=== PATIENT | female | born 1940 | race African-American/Black ===

== ENCOUNTER → 2016-08-22 | Outpatient (REF) | payer MEDICARE ==
[~2016-08-22] MED LIST: AMLO10TA2 PO; ASPI81CH PO; ATEN100T PO; CETI10CH PO; CLOP75TA2 PO; COZA100T2 PO; GLUC500T PO; GLYB1TAB PO; LOSA50TA20 PO; METF1000 PO; OMEP40CA2 PO; TENO50TA PO; TYLE325T5 PO; ZOCO20TA PO
[2016-08-22 11:54] LABS: CALCIUM LEVEL 9.9 MG/DL (8.8-10.2); CREATININE FOR GFR 1.25 MG/DL (0.55-1.02); GLOMERULAR FILTRATION RATE 53.6 (>39); POTASSIUM SERUM 4.3 MEQ/L (3.5-5.1)
== END ==
LOC: M SFHCLERA 09:14
PROVIDERS: ATTEND Family Medicine
DX: E11.9 Type 2 diabetes mellitus without complications (principal)

== ENCOUNTER → 2017-02-09 | Outpatient (REF) | payer MEDICARE ==
[2017-02-09 11:44] LABS: ANION GAP 11 MEQ/L (8-16); BLOOD UREA NITROGEN 15 MG/DL (7-18); CALCIUM LEVEL 9.3 MG/DL (8.8-10.2); CARBON DIOXIDE LEVEL 29 MEQ/L (21-32); CHLORIDE LEVEL 101 MEQ/L (98-107); CREATININE FOR GFR 1.09 MG/DL (0.55-1.02); GLOMERULAR FILTRATION RATE > 60.0 (>39); GLUCOSE, FASTING 256 MG/DL (83-110); POTASSIUM SERUM 4.1 MEQ/L (3.5-5.1); SODIUM LEVEL 141 MEQ/L (136-145)
== END ==
LOC: M SFHCLERA 09:40
PROVIDERS: ATTEND Family Medicine
DX: E11.9 Type 2 diabetes mellitus without complications (principal)

== ENCOUNTER → 2017-04-25 | Outpatient (CLI) | payer MEDICARE, OTHER | LOC: M LRY 09:26 | DX: M47.812 Spondylosis without myelopathy or radiculopathy, cervical region (principal); M50.81 Other cervical disc disorders, high cervical region; M50.821 Other cervical disc disorders at C4-C5 level; M50.822 Other cervical disc disorders at C5-C6 level; M19.012 Primary osteoarthritis, left shoulder; M85.812 Other specified disorders of bone density and structure, left shoulder | CPT/HCPCS: 72052 ==

== ENCOUNTER → 2017-07-26 | Outpatient (REF) | payer OTHER ==
[2017-07-26 11:26] LABS: HEMATOCRIT 40.4 % (36.0-47.0); MEAN CORPUSCULAR HEMOGLOBIN 29.1 pg (27.0-33.0); MEAN CORPUSCULAR HGB CONC 32.2 g/dl (32.0-36.5); MEAN CORPUSCULAR VOLUME 90.4 fl (80.0-96.0); PLATELET COUNT, AUTOMATED 388 10^3/uL (150-450); RED BLOOD COUNT 4.47 10^6/uL (4.00-5.40); RED CELL DISTRIBUTION WIDTH 12.7 % (11.5-14.5); WHITE BLOOD COUNT 9.3 10^3/uL (4.0-10.0)
[2017-07-26 11:45] LABS: ESTIMATED AVERAGE GLUCOSE 174 MG/DL (60-110); HEMOGLOBIN A1c 7.7 %
[2017-07-26 11:59] LABS: ALBUMIN 3.9 GM/DL (3.2-5.2); ALBUMIN/GLOBULIN RATIO 1.05 (1.00-1.93); ALKALINE PHOSPHATASE 79 U/L (45-117); ALT/SGPT 37 U/L (12-78); ANION GAP 8 MEQ/L (8-16); AST/SGOT 22 U/L (7-37); BILIRUBIN,TOTAL 0.7 MG/DL (0.2-1.0); BLOOD UREA NITROGEN 15 MG/DL (7-18); CALCIUM LEVEL 9.3 MG/DL (8.8-10.2); CARBON DIOXIDE LEVEL 31 MEQ/L (21-32); CHLORIDE LEVEL 101 MEQ/L (98-107); CHOLESTEROL LEVEL 151 MG/DL (<200); CHOLESTEROL RISK RATIO 3.212 (<5); GLOMERULAR FILTRATION RATE > 60.0 (>39); GLUCOSE, FASTING 250 MG/DL (70-100); HDL CHOLESTEROL 47 MG/DL (>40); NON-HDL-C 104 MG/DL; POTASSIUM SERUM 4.2 MEQ/L (3.5-5.1); SODIUM LEVEL 140 MEQ/L (136-145); TOTAL PROTEIN 7.6 GM/DL (6.4-8.2); TRIGLYCERIDES LEVEL 170 MG/DL (<150)
== END ==
LOC: M SFHCLERA 09:28
DX: E11.65 Type 2 diabetes mellitus with hyperglycemia (principal); E78.2 Mixed hyperlipidemia; I10 Essential (primary) hypertension
CPT/HCPCS: 80053

== ENCOUNTER 2017-11-15 08:08 | Day surgery (SDC) | payer OTHER ==
[~2017-11-15 08:08] MED LIST changes: +ACETAMINOPHEN 325 MG TAB PO; -AMLO10TA2 PO; -ASPI81CH PO; -ATEN100T PO; -CETI10CH PO; -CLOP75TA2 PO; -COZA100T2 PO; -GLUC500T PO; -GLYB1TAB PO; -LOSA50TA20 PO; -METF1000 PO; -OMEP40CA2 PO; +PHENYLEPHRINE HCL 10 % OPHTH. SOL 5ML OS; -TENO50TA PO; -TYLE325T5 PO; -ZOCO20TA PO
[2017-11-15 08:43] LABS: BEDSIDE GLUCOSE 142 MG/DL (83-110)
[2017-11-15] MEDS: PHENYLEPHRINE 2.5% OPHTH SOL 2ML OS (08:48)
[2017-11-15] MEDS: LIDOCAINE 3.5 % 1ML OPHTH TOPICAL GEL OU (08:48)
[2017-11-15] MEDS: OFLOXACIN 0.3 % (OCUFLOX) OPTH SOL 5ML OS (08:48)
[2017-11-15] MEDS: TROPICAMIDE 1% OPHTH SOLN 2ML OS (08:49)
[2017-11-15] MEDS: CYCLOPENTOLATE 2% OPHTH SOLN 2ML BTL OS (08:49)
[2017-11-15] MEDS ORDERED: fentaNYL 100 MCG/2 ML INJECTION (J3010) As Ordered (10:26)
[2017-11-15] MEDS ORDERED: MIDAZOLAM INJ 2 MG/2 ML VIAL (J2250) As Ordered (10:26)
[2017-11-15] MEDS: POVIDONE-IODINE 5% OPHTH PREP SOL 30ML As Ordered (10:27)
[2017-11-15] MEDS: BSS with VANC/TOB/EPI for EYE CASES IR (10:29)
[2017-11-15] MEDS: LIDOCAINE 1% SDV 5 ML VIAL As Ordered (10:29)
[2017-11-15] MEDS: MOXIFLOXACIN IN BSS 0.25MG/0.25ML INTRACAMERAL INJ (OR EYE ONLY)(J2280) As Ordered (10:29)
[2017-11-15] MEDS: HEALON DUET (HEALON 10MG/ML 0.55ML & HEALON ENDOCOAT 30MG/ML 0.85ML) As Ordered ×2 (10:29→10:50)
[2017-11-15] MEDS: TRIAMCINOLONE PRES FR 40 MG/ML 1ML(TRIESENCE)(OR EYE ONLY)(J3300 PER 1MG) As Ordered (10:29)
[2017-11-15] MEDS: LIDOCAINE 2% W/EPIN INJ 20ML **PRES FREE XX (10:30)
[2017-11-15] MEDS: ACETYLCHOLINE OPHTH SOLN 1% 2ML (MIOCHOL-E) As Ordered (10:53)
[2017-11-15] MEDS ORDERED: TRIMETHOBENZAMIDE 300 MG CAP PO (11:15)
[2017-11-15] MEDS: AcetaZOLAMIDE 500 MG ER CAP PO (11:18)
== END 2017-11-15 11:37 | disposition home or self-care (01) ==
LOC: M SDC 08:08
DX: H25.12 Age-related nuclear cataract, left eye (principal); I10 Essential (primary) hypertension; R01.1 Cardiac murmur, unspecified; E11.9 Type 2 diabetes mellitus without complications; M17.0 Bilateral primary osteoarthritis of knee; M81.0 Age-related osteoporosis without current pathological fracture; F03.90 Unspecified dementia, unspecified severity, without behavioral disturbance, psychotic disturbance, mood disturbance, and anxiety; F32.9 Major depressive disorder, single episode, unspecified; R56.9 Unspecified convulsions; Z88.8 Allergy status to other drugs, medicaments and biological substances; Z79.899 Other long term (current) drug therapy; Z79.84 Long term (current) use of oral hypoglycemic drugs; Z86.73 Personal history of transient ischemic attack (TIA), and cerebral infarction without residual deficits; Z78.0 Asymptomatic menopausal state
CPT/HCPCS: 66984

== ENCOUNTER 2017-11-22 05:52 | Day surgery (SDC) | payer OTHER ==
[2017-11-22] MEDS ORDERED: ACETAMINOPHEN 325 MG TAB PO (06:00)
[2017-11-22] MEDS: CYCLOPENTOLATE 2% OPHTH SOLN 2ML BTL OD (06:33)
[2017-11-22] MEDS: PHENYLEPHRINE 2.5% OPHTH SOL 2ML OD (06:33)
[2017-11-22] MEDS: LIDOCAINE 3.5 % 1ML OPHTH TOPICAL GEL OU (06:34)
[2017-11-22] MEDS: OFLOXACIN 0.3 % (OCUFLOX) OPTH SOL 5ML OD (06:34)
[2017-11-22] MEDS: TROPICAMIDE 1% OPHTH SOLN 2ML OD (06:34)
[2017-11-22 06:41] LABS: BEDSIDE GLUCOSE 158 MG/DL (83-110)
[2017-11-22] MEDS ORDERED: PHENYLEPHRINE HCL 10 % OPHTH. SOL 5ML OD (07:00)
[2017-11-22] MEDS ORDERED: MIDAZOLAM INJ 2 MG/2 ML VIAL (J2250) As Ordered (07:01)
[2017-11-22] MEDS ORDERED: fentaNYL 100 MCG/2 ML INJECTION (J3010) As Ordered (07:01)
[2017-11-22] MEDS: POVIDONE-IODINE 5% OPHTH PREP SOL 30ML As Ordered (07:40)
[2017-11-22] MEDS: CEFUROXIME 1MG/0.1ML INTRACAMERAL INJ As Ordered (07:40)
[2017-11-22] MEDS: BSS with VANC/TOB/EPI for EYE CASES IR (07:40)
[2017-11-22] MEDS: LIDOCAINE 2% W/EPIN INJ 20ML **PRES FREE As Ordered (07:40)
[2017-11-22] MEDS: TRIAMCINOLONE PRES FR 40 MG/ML 1ML(TRIESENCE)(OR EYE ONLY)(J3300 PER 1MG) As Ordered (07:40)
[2017-11-22] MEDS: LIDOCAINE 1% SDV 5 ML VIAL As Ordered (07:40)
[2017-11-22] MEDS: HEALON DUET (HEALON 10MG/ML 0.55ML & HEALON ENDOCOAT 30MG/ML 0.85ML) As Ordered (07:40)
[2017-11-22] MEDS ORDERED: TRIMETHOBENZAMIDE 300 MG CAP PO (08:00)
[2017-11-22] MEDS: MOXIFLOXACIN IN BSS 0.25MG/0.25ML INTRACAMERAL INJ (OR EYE ONLY)(J2280) As Ordered (08:03)
[2017-11-22] MEDS: AcetaZOLAMIDE 500 MG ER CAP PO (08:25)
== END 2017-11-22 08:38 | disposition home or self-care (01) ==
LOC: M SDC 05:52
DX: H26.9 Unspecified cataract (principal); I10 Essential (primary) hypertension; R01.1 Cardiac murmur, unspecified; E11.9 Type 2 diabetes mellitus without complications; K21.9 Gastro-esophageal reflux disease without esophagitis; M12.9 Arthropathy, unspecified; M81.0 Age-related osteoporosis without current pathological fracture; F03.90 Unspecified dementia, unspecified severity, without behavioral disturbance, psychotic disturbance, mood disturbance, and anxiety; F32.9 Major depressive disorder, single episode, unspecified; I69.991 Dysphagia following unspecified cerebrovascular disease; R56.9 Unspecified convulsions; Z88.8 Allergy status to other drugs, medicaments and biological substances; Z79.899 Other long term (current) drug therapy; Z79.84 Long term (current) use of oral hypoglycemic drugs; Z78.0 Asymptomatic menopausal state
CPT/HCPCS: 66984

== ENCOUNTER 2018-05-27 11:31 | Emergency (ER) | payer MEDICARE, OTHER ==
[~2018-05-27 11:31] MED LIST changes: -ACETAMINOPHEN 325 MG TAB PO; +AMLO10TA2 PO; +AMLO5TAB6 PO; +ASPI81CH PO; +ATEN100T PO; +ATOR1TAB21 PO; +CETI10CH PO; +CLOP75TA2 PO; +CLOT1CRE71 TOP; +COZA100T2 PO; +FLUO20CA19 PO; +GLUC500T PO; +GLYB125TA PO; +GLYB1TAB PO; +JANU100T PO; +LOSA50TA20 PO; +LOSA50TA88 PO; +METF1000 PO; +METF10004 PO; +METO1TAB87 PO; +OMEP40CA2 PO; -PHENYLEPHRINE HCL 10 % OPHTH. SOL 5ML OS; +SIMV40TA2; +TENO50TA PO; +TYLE325T5 PO; +ZOCO20TA PO
[2018-05-27] MEDS ORDERED: ASPI81TA85 PO (11:49)
[2018-05-27 12:49] VITALS: BP 146/85
--- NOTE | 2018-05-27 13:33 | REP ---
CT BRAIN WITHOUT CONTRAST: CT brain performed without IV contrast. Comparison 01/05/2013. There is moderate atrophy. There is no midline shift or mass effect. 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 In addition there are scattered periventricular small vessel ischemic changes. There is no acute intracranial hemorrhage or extra-axial fluid collection. No skull fracture is seen. There are vascular calcifications in the carotid siphons. 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 No acute intracranial hemorrhage or skull fracture. Electronically Signed by Pavel Velez MD 05/27/2018 06:13 P
== END 2018-05-27 12:54 | disposition home or self-care (01) ==
LOC: M ED 11:31
DX: S09.90XA Unspecified injury of head, initial encounter (principal); X58.XXXA Exposure to other specified factors, initial encounter; Y92.091 Bathroom in other non-institutional residence as the place of occurrence of the external cause; Y93.E8 Activity, other personal hygiene; Y99.9 Unspecified external cause status; E11.9 Type 2 diabetes mellitus without complications; I10 Essential (primary) hypertension; Z86.73 Personal history of transient ischemic attack (TIA), and cerebral infarction without residual deficits; F03.90 Unspecified dementia, unspecified severity, without behavioral disturbance, psychotic disturbance, mood disturbance, and anxiety; R47.01 Aphasia; Z79.82 Long term (current) use of aspirin; Z79.84 Long term (current) use of oral hypoglycemic drugs; Z79.899 Other long term (current) drug therapy; Z88.8 Allergy status to other drugs, medicaments and biological substances

== ENCOUNTER → 2018-07-24 | Outpatient (REF) | payer MEDICARE ==
[~2018-07-24] MED LIST changes: +ASPI81TA85 PO
[2018-07-24 12:01] LABS: BASO % 0.4 % (0.0-1.0); EOS # 0.2 10^3/uL (0.0-0.50); EOS % 1.7 % (0.0-3.0); HEMOGLOBIN 12.6 g/dl (12.0-15.5); LYMPH % 28.8 % (24.0-44.0); MEAN CORPUSCULAR HEMOGLOBIN 29.1 pg (27.0-33.0); MEAN CORPUSCULAR HGB CONC 31.5 g/dl (32.0-36.5); MEAN CORPUSCULAR VOLUME 92.4 fl (80.0-96.0); MONO # 0.8 10^3/uL (0.0-0.8); MONO % 7.9 % (0.0-5.0); NEUTROPHILS # 6.3 10^3/uL (1.8-7.7); NEUTROPHILS % 60.9 % (36.0-66.0); PLATELET COUNT, AUTOMATED 384 10^3/uL (150-450); RED BLOOD COUNT 4.33 10^6/uL (4.00-5.40); WHITE BLOOD COUNT 10.4 10^3/uL (4.0-10.0)
[2018-07-24 12:59] LABS: MALB URINE SIEMENS 82.5 MG/L; MAU/CREAT RATIO 44.3 MCG/MG (0.0-30.0)
[2018-07-24 15:57] LABS: HEMOGLOBIN A1c 6.8 %
[2018-07-24 17:02] LABS: ALT/SGPT 22 U/L (12-78); BILIRUBIN,TOTAL 0.8 MG/DL (0.2-1.0); BLOOD UREA NITROGEN 13 MG/DL (7-18); CALCIUM LEVEL 9.6 MG/DL (8.8-10.2); CARBON DIOXIDE LEVEL 29 MEQ/L (21-32); CHLORIDE LEVEL 104 MEQ/L (98-107); CHOLESTEROL LEVEL 123 MG/DL (<200); CHOLESTEROL RISK RATIO 2.795 (<5); CREATININE FOR GFR 0.89 MG/DL (0.55-1.30); GLOMERULAR FILTRATION RATE > 60.0 (>39); GLUCOSE, FASTING 106 MG/DL (70-100); HDL CHOLESTEROL 44 MG/DL (>40); LDL CHOLESTEROL 58 MG/DL (<100); NON-HDL-C 79 MG/DL; POTASSIUM SERUM 4.1 MEQ/L (3.5-5.1); SODIUM LEVEL 142 MEQ/L (136-145); TOTAL PROTEIN 7.3 GM/DL (6.4-8.2); TRIGLYCERIDES LEVEL 104 MG/DL (<150); VITAMIN B12 LEVEL 555 PG/ML
== END ==
LOC: M SFHCLERA 08:50
PROVIDERS: ATTEND Family Medicine
DX: E11.9 Type 2 diabetes mellitus without complications (principal); F03.90 Unspecified dementia, unspecified severity, without behavioral disturbance, psychotic disturbance, mood disturbance, and anxiety
CPT/HCPCS: 80053; 80061; 82043; 82607; 82746; 83036; 84443; 85025; 86780; G0463

== ENCOUNTER → 2018-12-26 | Outpatient (REF) | payer MEDICARE ==
[~2018-12-26] MED LIST changes: +OMEP40CA97 PO
[2018-12-26 16:30] LABS: ALBUMIN 3.8 GM/DL (3.2-5.2); ALT/SGPT 15 U/L (12-78); BILIRUBIN,TOTAL 0.7 MG/DL (0.2-1.0); BLOOD UREA NITROGEN 17 MG/DL (7-18); CALCIUM LEVEL 9.5 MG/DL (8.8-10.2); CARBON DIOXIDE LEVEL 30 MEQ/L (21-32); CHLORIDE LEVEL 104 MEQ/L (98-107); CK-MB VALUE MASS < 1.0 NG/ML (<3.6); CPK CREATINE PHOSPHOKINASE 80 U/L (26-192); CREATININE FOR GFR 1.22 MG/DL (0.55-1.30); GLOMERULAR FILTRATION RATE 54.8 (>39); GLUCOSE, FASTING 175 MG/DL (70-100); MB/CK RELATIVE INDEX 1.25 (< OR =4); SODIUM LEVEL 141 MEQ/L (136-145); TOTAL PROTEIN 7.4 GM/DL (6.4-8.2)
[2018-12-26 16:52] LABS: HEMOGLOBIN A1c 6.7 %
== END ==
LOC: M SFHCLERA 10:52
PROVIDERS: ATTEND Family Medicine
DX: E11.9 Type 2 diabetes mellitus without complications (principal); I10 Essential (primary) hypertension; M79.601 Pain in right arm
CPT/HCPCS: 80053; 82553; 83036; 90682; G0008; G0463

== ENCOUNTER → 2019-08-01 | Outpatient (CLI) | payer MEDICARE ==
[~2019-08-01] MED LIST changes: -FLUO20CA19 PO; +FLUO20CA22 PO; -SIMV40TA2; +SIMV40TA20
--- NOTE | 2019-08-01 19:10 | REPPI ---
Clinical: Acute lower back pain. Technique: AP, lateral, bilateral oblique and coned-down views of the lumbosacral spine. Findings: Alignment and lordosis maintained. Generalized age-related osteopenia is appreciated along with moderate to advanced multilevel degenerative changes. Findings include endplate sclerosis, disc space narrowing and facet arthropathy at the L5-S1 level along with more moderate changes throughout the remainder of the visualized thoracic and lumbar spine. No acute fracture / compression injury or subluxation. Impression: Age-related osteopenia and moderate/focal advanced degenerative spondylosis. Electronically Signed by Gabriel Arteaga MD 08/01/2019 07:01 P
== END ==
LOC: M PLAIMG 08:42
PROVIDERS: ATTEND Family Medicine
DX: M85.88 Other specified disorders of bone density and structure, other site (principal); M51.36 Other intervertebral disc degeneration, lumbar region; M51.37 Other intervertebral disc degeneration, lumbosacral region; M51.34 Other intervertebral disc degeneration, thoracic region; M54.5 Low back pain; E11.9 Type 2 diabetes mellitus without complications
CPT/HCPCS: 36415; 72110; 80053; 80061; 82043; 83036; G0463

== ENCOUNTER → 2020-01-02 | Outpatient (CLI) | payer MEDICARE ==
[~2020-01-02] MED LIST changes: +AMLO1TAB24 PO; -AMLO5TAB6 PO; -ASPI81TA85 PO; +ASPI81TA86 PO
[2020-01-02 10:33] LABS: HEMOGLOBIN A1c 6.5 %
== END ==
LOC: M WUC 08:01
PROVIDERS: ATTEND Family Medicine
DX: E11.9 Type 2 diabetes mellitus without complications (principal)

== ENCOUNTER 2020-04-29 08:28 | Inpatient (IN) | payer MEDICARE ==
[~2020-04-29] VITALS: Ht 157.5 cm; Wt 77.3 kg
[2020-04-29 09:29] LABS: BASO % 0.2 % (0.0-1.0); EOS % 0.2 % (0.0-3.0); HEMATOCRIT 35.9 % (36.0-47.0); HEMOGLOBIN 11.2 g/dl (12.0-15.5); LYMPH # 1.4 10^3/uL (1.5-5.0); LYMPH % 16.4 % (24.0-44.0); MEAN CORPUSCULAR HEMOGLOBIN 28.5 pg (27.0-33.0); MEAN CORPUSCULAR HGB CONC 31.2 g/dl (32.0-36.5); MEAN CORPUSCULAR VOLUME 91.3 fl (80.0-96.0); MONO # 0.4 10^3/uL (0.0-0.8); MONO % 4.5 % (2.0-8.0); NEUTROPHILS # 6.4 10^3/uL (1.5-8.5); NEUTROPHILS % 78.1 % (36.0-66.0); PLATELET COUNT, AUTOMATED 277 10^3/uL (150-450); RED BLOOD COUNT 3.93 10^6/uL (4.00-5.40); WHITE BLOOD COUNT 8.2 10^3/uL (4.0-10.0)
--- OUTSIDE RECORDS SUMMARY | 2020-04-29 09:33 | CCD ---
Author Author [facility] Organization [facility] Address Unknown Phone Unavailable Care Team Providers Care Blast Furnace Blower Name Role Phone Bri BUTCHER DPM Unavailable Unavailable Bri BUTCHER DPM Unavailable Unavailable Bri BUTCHER DPM Unavailable Unavailable Bri BUTCHER DPM Unavailable Unavailable Bri BUTCHER DPM Unavailable Unavailable Bri BUTCHER DPM Unavailable Unavailable Bri BUTCHER DPM Unavailable Unavailable Bri BUTCHER DPM Unavailable Unavailable Bri BUTCHER DPM Unavailable Unavailable Bri BUTCHER DPM Unavailable Unavailable Bri BUTCHER DPM Unavailable Unavailable Bri BUTCHER DPM Unavailable Unavailable Bri BUTCHER DPM Unavailable Unavailable Bri BUTCHER DPM Unavailable Unavailable Bri BUTCHER DPM Unavailable Unavailable Bri BUTCHER DPM Unavailable Unavailable Bri BUTCHER DPM Unavailable Unavailable Bri BUTCHER DPM Unavailable Unavailable Bri BUTCHER DPM Unavailable Unavailable Bri BUTCHER DPM Unavailable Unavailable Bri BUTCHER DPM Unavailable Unavailable Bri BUTCHER DPM Unavailable Unavailable Bri BUTCHER DPM Unavailable Unavailable Bri BUTCHER DPM Unavailable Unavailable Bri BUTCHER DPM Unavailable Unavailable Bri BUTCHER DPM Unavailable Unavailable MAJAK, R CUONG DPM Unavailable Unavailable MAJAK, R CUONG DPM Unavailable Unavailable MAJAK, R CUONG DPM Unavailable Unavailable MAJAK, R CUONG DPM Unavailable Unavailable [facility], [facility] Unavailable Unavailable Re-disclosure Warning The records that you are about to access may contain information from federally-assisted alcohol or drug abuse programs. If such information is present, then the following federally mandated warning applies: This information has been disclosed to you from records protected by federal confidentiality rules (42 CFR part 2). The federal rules prohibit you from making any further disclosure of this information unless further disclosure is expressly permitted by the written consent of the person to whom it pertains or as otherwise permitted by 42 CFR part 2. A general authorization for the release of medical or other information is NOT sufficient for this purpose. The Federal rules restrict any use of the information to criminally investigate or prosecute any alcohol or drug abuse patient.The records that you are about to access may contain highly sensitive health information, the redisclosure of which is protected by Article 27-F of the [facility] Public Health law. If you continue you may have access to information: Regarding HIV / AIDS; Provided by facilities licensed or operated by the [facility] Office of Mental Health; or Provided by the [facility] Office for People With Developmental Disabilities. If such information is present, then the following [facility] mandated warning applies: This information has been disclosed to you from confidential records which are protected by state law. State law prohibits you from making any further disclosure of this information without the specific written consent of the person to whom it pertains, or as otherwise permitted by law. Any unauthorized further disclosure in violation of state law may result in a fine or usp sentence or both. A general authorization for the release of medical or other information is NOT sufficient authorization for further disc losure. Allergies and Adverse Reactions Type Description Substance Reaction Status Data Source(s ) Drug allergy Actonel Risedronate fall Active eCW1 ([facility]) lisinopril Zestril Lisinopril cough Active eCW1 ([facility]) Drug allergy Actos pioglitazone swelling in the feet Active eCW1 ([facility]) Drug allergy Dilantin Phenytoin Anaphylaxis Active eCW1 ([facility]) Encounters Encounter Providers Location Date Indications Data Source(s ) [place] [address] [facility] [address] 01/14/2020 12:00:00 AM EST eCW1 ([facility]) [place] [address] [facility] [address] 01/14/2020 12:00:00 AM EST eCW1 ([facility]) [place] [address] [facility] [address] 11/26/2019 12:00:00 AM EDT eCW1 ([facility]) Outpatient Attender: CUONG BUTCHER [facility] Office 11/04 09:00:00 AM EDT MEDENT ([facility] Outpatient Attender: CUONG BUTCHER [facility] 08/04 08:30:00 AM EDT MEDENT ([facility] 08/13/2019 07:56:59 PM EDT [facility] [place] [address] [facility] [address] 08/13/2019 12:00:00 AM EDT eCW1 ([facility]) [place] [address] [facility] [address] 08/13/2019 12:00:00 AM EDT eCW1 [facility]: [facility] 08/03/2019 12:17:34 AM EDT [facility] [address] [facility] [address] 08/02/2019 12:00:00 AM EDT eCW1 ([facility]) [place] [address] [facility] [address] 08/01/2019 12:00:00 AM EDT eCW1 ([facility]) [facility] Dermatology [address] [place] [address] 05/03/2019 12:00:00 AM EST eCW1 ([facility]) Immunizations Vaccine Date Status Description Data Source(s) influenza, recombinant, quadrIvalent,injectable, prese rvative free 01/14/2020 08:01:00 AM EST completed eCW1 ([facility]) influenza, recombinant, quadrIvalent,injectable, prese rvative free 01/14/2020 08:01:00 AM EST completed eCW1 ([facility]) Medications Medication Brand Name Start Date Product Form Dose Route Admi nistrative Instructions Pharmacy Instructions Status Indications Reaction Description Data Source(s) Diclofenac Sodium 0.01 MG/MG Topical Gel [Voltaren] Voltaren 1 % Voltaren 1 % 01/14/2020 12:00:00 AM EST active Voltaren 1 % eCW1 ([facility]) Diclofenac Sodium 0.01 MG/MG Topical Gel [Voltaren] Voltaren 1 % Voltaren 1 % 01/14/2020 12:00:00 AM EST active Voltaren 1 % eCW1 ([facility]) Erythromycin 0.005 MG/MG Ophthalmic Ointment Erythromy rivera 5 MG/GM Erythromycin 5 MG/GM 08/13/2019 12:00:00 AM EDT active Erythromycin 5 MG/GM eCW1 ([facility]) Carboxymethylcellulose Sodium 1 % UNK 08/13/2019 12:00:00 AM EDT active Carboxymethylcellulose Sodium 1 % eCW1 ([facility]) Erythromycin 0.005 MG/MG Ophthalmic Ointment Erythromy rivera 5 MG/GM Erythromycin 5 MG/GM 08/13/2019 12:00:00 AM EDT active Erythromycin 5 MG/GM eCW1 ([facility]) Carboxymethylcellulose Sodium 1 % UNK 08/13/2019 12:00:00 AM EDT active Carboxymethylcellulose Sodium 1 % eCW1 ([facility]) Carboxymethylcellulose Sodium 1 % UNK 08/13/2019 12:00:00 AM EDT active Carboxymethylcellulose Sodium 1 % eCW1 ([facility]) Erythromycin 0.005 MG/MG Ophthalmic Ointment Erythromy rivera 5 MG/GM Erythromycin 5 MG/GM 08/13/2019 12:00:00 AM EDT active Erythromycin 5 MG/GM eCW1 ([facility]) Carboxymethylcellulose Sodium 1 % UNK 08/13/2019 12:00:00 AM EDT active Carboxymethylcellulose Sodium 1 % eCW1 ([facility]) Erythromycin 0.005 MG/MG Ophthalmic Ointment Erythromy rivera 5 MG/GM Erythromycin 5 MG/GM 08/13/2019 12:00:00 AM EDT active Erythromycin 5 MG/GM eCW1 ([facility]) Erythromycin 0.005 MG/MG Ophthalmic Ointment Erythromy rivera 5 MG/GM Erythromycin 5 MG/GM 08/13/2019 12:00:00 AM EDT active Erythromycin 5 MG/GM eCW1 ([facility]) Carboxymethylcellulose Sodium 1 % UNK 08/13/2019 12:00:00 AM EDT active Carboxymethylcellulose Sodium 1 % eCW1 ([facility]) Betamethasone 0.0005 MG/MG Topical Ointment Betamethas one Dipropionate 0.05 % Betamethasone Dipropionate 0.05 % 05/03/2019 12:00:00 AM EST 1.0 {application} active Betamethasone Dipropiona te 0.05 % eCW1 ([facility]) Betamethasone 0.0005 MG/MG Topical Ointment Betamethas one Dipropionate 0.05 % Betamethasone Dipropionate 0.05 % 05/03/2019 12:00:00 AM EST active 1 application eCW1 ([facility]) Insurance Providers Payer name Policy type / Coverage type Policy ID Covered democrat ID Covered democrat's relationship to hunter Policy Hunter Plan Information [employer] [id number] SP [id number] D [employer] S [id number] S [id number] Well[employer] P UNAVAILABLE S UNAVAILA BLE ANSI-Medicare Part B [id number] ANSI-Health Maintenance Organization (HM O) [id number] ANSI-Health Maintenance Organization (HM O) [id number] ANSI-Medicare Part B [id number] ANSI-Medicare Part B [id number] [facility]-Health Maintenance Organization ( O) [id number] [facility]-Health Maintenance Organization ( O) [id number] ANSI-Medicare Part B [id number] [facility]-Health Maintenance Organization ( O) [id number] ANSI-Medicare Part B [id number] [facility]-Health Maintenance Organization ( O) [id number] ANSI-Medicare Part B [id number] TODAYS OPTIONS [id number] ANSI-Medicare Part B [id number] ANSI-Medicare Part B [id number] ANSI-Medicare Part B [id number] ANSI-Medicare Part B [id number] ANSI-Medicare Part B [id number] ANSI-Medicare Part B [id number] TODAYS OPTIONS [id number] ANSI-Medicare Part B [id number] ANSI-Medicare Part B [id number] ANSI-Medicare Part B [id number] MEDICARE BLUE PPO [id number] SP [id number] MEDICARE [id number] SP [id number] A MEDICAID [id number] SP [id number] MEDICAID S [id number] S [id number] MEDICARE P [id number] S [id number] A Problems, Conditions, and Diagnoses Code Display Name Description Problem Type Effective Dates Data Source(s) G89.29 Chronic pain Other chronic pain Problem 01/14/2020 12:0 0:00 AM EST eCW1 ([facility]) [id number] Type 2 diabetes mellitus Type 2 diabetes mellitus Prob mile 08/28/2019 12:00:00 AM EDT MEDENT [facility] Corns and callosities Corns and callosities Problem 08/28/2019 12:00:00 AM EDT MEDENT ([facility] [id number] Onychomycosis Onychomycosis Problem 08/28/2019 12:00:00 AM EDT [facility] ([facility] [id number] Pronation Pronation Problem 08/28/2019 12:00:00 AM ED T [facility] K21.9 [id number] Gastroesophageal reflux disease without e sophagitis Problem 07/31/2019 12:00:00 AM EDT eCW1 ([facility]) K21.9 [id number] Gastroesophageal reflux disease without e sophagitis Problem 07/31/2019 12:00:00 AM EDT eCW1 ([facility]) Surgeries/Procedures Procedure Description Date Indications Data Source(s) Immunization: Flublok Quadrivalent (18 years & older) 0.5mL IM (Influenza) 01/14/2020 12:00:00 AM EST eCW1 ([facility]) Social History Code Duration Value Status Description Data Source(s ) Smoking 01/14/2020 12:00:00 AM EST Never Smoker completed Never S moker eCW1 ([facility]) Smoking 01/14/2020 12:00:00 AM EST Never Smoker completed Never S moker eCW1 ([facility]) Smoking 08/13/2019 12:00:00 AM EDT Never Smoker completed Never S moker eCW1 ([facility]) Smoking 08/13/2019 12:00:00 AM EDT Never Smoker completed Never S moker eCW1 ([facility]) Smoking 08/13/2019 12:00:00 AM EDT Never Smoker completed Never S moker eCW1 ([facility]) Vital Signs ID Date Data Source UNK Name Value Range Interpretation Code Description Data Source(s) Diastolic blood pressure 82 mm[Hg] 82 mm[Hg] eCW1 ([facility]) Systolic blood pressure 144 mm[Hg] 144 mm[Hg] e CW1 ([facility]) Body temperature 98.7 [degF] 98.7 [degF] eCW1 ( [facility]) Respiratory rate 18 /min 18 /min eCW1 ([facility]) Heart rate 77 /min 77 /min eCW1 ([facility]) Body mass index (BMI) [Ratio] 30.52 kg/m2 30.52 kg/m2 eCW1 ([facility]) Body height 61.5 [in_i] 61.5 [in_i] eCW1 ([facility]) Body weight 164.2 [lb_av] 164.2 [lb_av] eCW1 ([facility]) Body mass index (BMI) [Ratio] 30.9 kg/m2 30.9 k g/m2 MEDENT ([facility] Heart rate 84 /min 84 /min MEDENT ([facility] Diastolic blood pressure 83 mm[Hg] 83 mm[Hg] MEDENT ([facility] Systolic blood pressure 151 mm[Hg] 151 mm[Hg] M EDENT ([facility] Body weight 166.00 [lb_av] 166.00 [lb_av] MEDEN T ([facility] Body height 61.5 [in_i] 61.5 [in_i] MARCELLE ([facility] 5'1.50" Body mass index (BMI) [Ratio] 31.04 kg/m2 31.04 kg/m2 eCW1 ([facility]) Body height 61.5 [in_i] 61.5 [in_i] eCW1 ([facility]) Body weight 167 [lb_av] 167 [lb_av] eCW1 ([facility]) Diastolic blood pressure 83 mm[Hg] 83 mm[Hg] eCW1 ([facility]) Systolic blood pressure 151 mm[Hg] 151 mm[Hg] e CW1 ([facility]) Body temperature 97.3 [degF] 97.3 [degF] eCW1 ( [facility]) Respiratory rate 17 /min 17 /min eCW1 ([facility]) Heart rate 84 /min 84 /min eCW1 ([facility]) Body mass index (BMI) [Ratio] 30.97 kg/m2 30.97 kg/m2 W1 ([facility]) Body height 61.5 [in_i] 61.5 [in_i] eCW1 ([facility]) Body weight 166.6 [lb_av] 166.6 [lb_av] eCW1 ([facility]) Body mass index (BMI) [Ratio] 30.63 kg/m2 30.63 kg/m2 eCW1 ([facility]) Body height 61.5 [in_us] 61.5 [in_us] eCW1 ([facility]) Body weight Measured 164.8 [lb_av] 164.8 [lb_av ] eCW1 ([facility]) Patient Treatment Plan of Care Planned Activity Planned Date Details Description Data Source (s) Diclofenac Sodium 0.01 MG/MG Topical Gel [Voltaren] 01/14/20 20 12:00:00 AM EST eCW1 ([facility]) Diclofenac Sodium 0.01 MG/MG Topical Gel [Voltaren] 01/14/20 12:00:00 AM EST eCW1 ([facility]) Carboxymethylcellulose Sodium 1 % 08/13/2019 12:00:00 AM EDT eCW1 ([facility]) Erythromycin 0.005 MG/MG Ophthalmic Ointment 08/13/2019 12:00:00 AM EDT eCW1 ([facility]) Carboxymethylcellulose Sodium 1 % 08/13/2019 12:00:00 AM EDT eCW1 ([facility]) Erythromycin 0.005 MG/MG Ophthalmic Ointment 08/13/2019 12:00:00 AM EDT eCW1 ([facility]) Carboxymethylcellulose Sodium 1 % 08/13/2019 12:00:00 AM EDT eCW1 ([facility]) Erythromycin 0.005 MG/MG Ophthalmic Ointment 08/13/2019 12:00:00 AM EDT eCW1 ([facility]) Betamethasone 0.0005 MG/MG Topical Ointment 05/03/2019 12:00:00 AM EST eCW1 ([facility])
[2020-04-29] MEDS ORDERED: LOSA100T50 PO (09:50)
[2020-04-29] MEDS ORDERED: METF-839 PO (09:50)
[2020-04-29 10:00] LABS: D-DIMER QUANT 2805.06 ng/ml (<500)
[2020-04-29 10:04] LABS: ALBUMIN 3.1 GM/DL (3.2-5.2); BILIRUBIN,DIRECT 0.1 MG/DL (0.0-0.2); BILIRUBIN,TOTAL 0.3 MG/DL (0.2-1.0); C REACTIVE PROTEIN QUANTITATIV 6.04 MG/DL (0.00-0.30); CALCIUM LEVEL 8.6 MG/DL (8.8-10.2); CREATININE FOR GFR 1.84 MG/DL (0.55-1.30); TOTAL PROTEIN 6.7 GM/DL (6.4-8.2); TROPONIN I 0.08 NG/ML (< 0.10)
--- NOTE | 2020-04-29 10:17 | REP ---
INDICATION: AMS. COMPARISON: 01/02/2013 TECHNIQUE: AP portable semi-erect FINDINGS: There is cardiomegaly with left atrial and ventricular enlargement even allowing for lordotic AP portable technique. Some patchy atelectasis or infiltrate in the right base suspected. Left base suggests some possible small retrocardiac lower lobe atelectasis or infiltrate. No gross effusion but the lordotic image technique will limited evaluation of posterior lower lung zones. The aorta is tortuous. Airway is intact. See no definite pulmonary edema. Some degenerative changes spine and shoulders seen. No free air under the diaphragm. IMPRESSION: 1. Some patchy right mid and lower lung zone atelectasis or infiltrates with some retrocardiac left lower lobe density that may reflect some small area of atelectasis or infiltrate as well. No effusion on the left. The lordotic projection limits evaluation of the posterior lower lung zones. 2. Cardiomegaly with left atrial and ventricular enlargement. No scottie edema. Tortuous calcified aorta. 3. Degenerative changes throughout the spine and shoulders. <Electronically signed by Rogerio Nettles > 04/29/20 [id number]
[2020-04-29] MEDS ORDERED: ACETAMINOPHEN TAB 650MG DOSE (2X325MG) PO PRN ×2 (11:20→14:55)
[2020-04-29] MEDS ORDERED: MOM 30ML SUSPENSION UDC PO PRN (11:20)
[2020-04-29] MEDS ORDERED: MAALOX 30 ML SUSP *UDC PO PRN (11:20)
[2020-04-29] MEDS ORDERED: NS 1,000 ML IV SCH (12:35)
[2020-04-29] MEDS: HEPARIN SOD (PORCINE) 5000UNITS/ML 1ML VIAL/SYRINGE SQ SCH ×2 (13:00→20:21)
--- OUTSIDE RECORDS SUMMARY | 2020-04-29 13:10 | CCD ---
Author Author [facility] Organization [facility] Address Unknown Phone Unavailable Care Team Providers Care Automation Specialist Name Role Phone Bri BUTCHER DPM Unavailable [...] is protected by Article 27-F of the [facility] Public Health law. If you continue you may have access to information: Regarding HIV / AIDS; Provided by facilities licensed or operated by the [facility] Office of Mental Health; or Provided by the [facility] Office for People With Developmental Disabilities. If such information is present, then the following [facility] mandated warning applies: This information has been [...] law may result in a fine or penitentiary sentence or both. A general authorization for the release of medical or other information is NOT sufficient authorization for further disc losure. Allergies and Adverse Reactions Type Description Substance Reaction Status Data Source(s ) Drug allergy Actonel Risedronate fall Active eCW1 ([facility]) lisinopril Zestril Lisinopril cough Active eCW1 ([facility]) Drug allergy Actos pioglitazone swelling in the feet Active eCW1 ([facility]) Drug allergy Dilantin Phenytoin Anaphylaxis Active eCW1 ([facility]) Encounters Encounter Providers Location Date Indications Data Source(s ) [place] [address] [facility] [address] 01/14/2020 12:00:00 AM EST eCW1 ([facility]) [place] [address] [facility] [address] 01/14/2020 12:00:00 AM EST eCW1 ([facility]) [place] [address] [facility] [address] 11/26/2019 12:00:00 AM EDT eCW1 ([facility]) Outpatient Attender: CUONG BUTCHER [facility] Office 11/04 09:00:00 AM EDT MEDENT ([facility] Outpatient Attender: CUONG BUTCHER [facility] Office 08/04 08:30:00 AM EDT MEDENT ([facility]: [facility] 08/13/2019 07:56:[address] [facility] [place] [address] [facility] [address] 08/13/2019 12:00:00 AM EDT eCW1 ([facility]) [place] [address] [facility] [address] 08/13/2019 12:00:00 AM EDT eCW1 [facility] Out[facility] Att[facility]: [facility] 08/03/2019 12:17:34 AM EDT [facility] [address] [facility] [address] 08/02/2019 12:00:00 AM EDT eCW1 ([facility]) [place] [address] [facility] [address] 08/01/2019 12:00:00 AM EDT eCW1 ([facility]) [facility] Dermatology [address] [place] [address] 05/03/2019 12:00:00 AM EST eCW1 ([facility]) Immunizations Vaccine Date Status Description Data Source(s) influenza, recombinant, quadrIvalent,injectable, prese rvative free 01/14/2020 08:01:00 AM EST completed eCW1 ([facility]) influenza, recombinant, quadrIvalent,injectable, prese rvative free 01/14/2020 08:01:00 AM EST completed eCW1 ([facility]) Medications Medication Brand Name Start Date Product Form Dose Route Admi nistrative Instructions Pharmacy Instructions Status Indications Reaction Description Data Source(s) Diclofenac Sodium 0.01 MG/MG Topical Gel [Voltaren] Voltaren 1 % Voltaren 1 % 01/14/2020 12:00:00 AM EST active Voltaren 1 % eCW1 ([facility]) Diclofenac Sodium 0.01 MG/MG Topical Gel [Voltaren] Voltaren 1 % Voltaren 1 % 01/14/2020 12:00:00 AM EST active Voltaren 1 % eCW1 ([facility]) Erythromycin 0.005 MG/MG Ophthalmic Ointment Erythromy rivera 5 MG/GM Erythromycin 5 MG/GM 08/13/2019 12:00:00 AM EDT active Erythromycin 5 MG/GM eCW1 ([facility]) Carboxymethylcellulose Sodium 1 % UNK 08/13/2019 12:00:00 AM EDT active Carboxymethylcellulose Sodium 1 % eCW1 ([facility]) Erythromycin 0.005 MG/MG Ophthalmic Ointment Erythromy rivera 5 MG/GM Erythromycin 5 MG/GM 08/13/2019 12:00:00 AM EDT active Erythromycin 5 MG/GM eCW1 ([facility]) Carboxymethylcellulose Sodium 1 % UNK 08/13/2019 12:00:00 AM EDT active Carboxymethylcellulose Sodium 1 % eCW1 ([facility]) Carboxymethylcellulose Sodium 1 % UNK 08/13/2019 12:00:00 AM EDT active Carboxymethylcellulose Sodium 1 % eCW1 ([facility]) Erythromycin 0.005 MG/MG Ophthalmic Ointment Erythromy rivera 5 MG/GM Erythromycin 5 MG/GM 08/13/2019 12:00:00 AM EDT active Erythromycin 5 MG/GM eCW1 ([facility]) Carboxymethylcellulose Sodium 1 % UNK 08/13/2019 12:00:00 AM EDT active Carboxymethylcellulose Sodium 1 % eCW1 ([facility]) Erythromycin 0.005 MG/MG Ophthalmic Ointment Erythromy rivera 5 MG/GM Erythromycin 5 MG/GM 08/13/2019 12:00:00 AM EDT active Erythromycin 5 MG/GM eCW1 ([facility]) Erythromycin 0.005 MG/MG Ophthalmic Ointment Erythromy rivera 5 MG/GM Erythromycin 5 MG/GM 08/13/2019 12:00:00 AM EDT active Erythromycin 5 MG/GM eCW1 ([facility]) Carboxymethylcellulose Sodium 1 % UNK 08/13/2019 12:00:00 AM EDT active Carboxymethylcellulose Sodium 1 % eCW1 ([facility]) Betamethasone 0.0005 MG/MG Topical Ointment Betamethas one Dipropionate 0.05 % Betamethasone Dipropionate 0.05 % 05/03/2019 12:00:00 AM EST 1.0 {application} active Betamethasone Dipropiona te 0.05 % eCW1 ([facility]) Betamethasone 0.0005 MG/MG Topical Ointment Betamethas one Dipropionate 0.05 % Betamethasone Dipropionate 0.05 % 05/03/2019 12:00:00 AM EST active 1 application eCW1 ([facility]) Insurance Providers Payer name Policy type / Coverage type Policy ID Covered constitution party ID Covered constitution party's relationship to hunter Policy Hunter Plan Information [employer] [id number] SP [id number] D [employer] S [id number] S [id number] 68 [employer] P UNAVAILABLE S UNAVAILA BLE ANSI-Medicare Part B [id number] ANSI-Health Maintenance Organization (HM O) [id number] ANSI-Health Maintenance Organization (HM O) [id number] ANSI-Medicare Part B [id number] ANSI-Medicare Part B [id number] [facility]-Health Maintenance Organization ( O) [id number] [facility]-Health Maintenance Organization ( O) [id number] ANSI-Medicare Part B [id number] [facility]-Health Maintenance Organization ( O) [id number] ANSI-Medicare Part B [id number] [facility]-Health Maintenance Organization ( O) [id number] ANSI-Medicare Part B [id number] [employer] OPTIONS [id number] ANSI-Medicare Part B [id number] ANSI-Medicare Part B [id number] ANSI-Medicare Part B [id number] ANSI-Medicare Part B [id number] ANSI-Medicare Part B [id number] ANSI-Medicare Part B [id number] [employer] OPTIONS [id number] ANSI-Medicare Part B [id number] ANSI-Medicare Part B [id number] ANSI-Medicare Part B [id number] MEDICARE BLUE PPO 306 [id number] SP [id number] MEDICARE [id number] SP [id number] A MEDICAID [id number] SP [id number] MEDICAID S [id number] S [id number] MEDICARE P [id number] S [id number] A Problems, Conditions, and Diagnoses Code Display Name Description Problem Type Effective Dates Data Source(s) G89.29 Chronic pain Other chronic pain Problem 01/14/2020 12:0 0:00 AM EST eCW1 ([facility]) 08198284 Type 2 diabetes mellitus Type 2 diabetes mellitus Prob mile 08/28/2019 12:00:00 AM EDT MEDENT ([facility] Corns and callosities Corns and callosities Problem 08/28/2019 12:00:00 AM EDT MEDENT ([facility] [id number] Onychomycosis Onychomycosis Problem 08/28/2019 12:00:00 AM EDT MEDENT ([facility] [id number] Pronation Pronation Problem 08/28/2019 12:00:00 AM ED T MEDENT ([facility] K21.9 [id number] Gastroesophageal reflux disease without e sophagitis Problem 07/31/2019 12:00:00 AM EDT eCW1 ([facility]) K21.9 [id number] Gastroesophageal reflux disease without e sophagitis Problem 07/31/2019 12:00:00 AM EDT eCW1 ([facility]) Surgeries/Procedures Procedure Description Date Indications Data Source(s) Immunization: Flublok Quadrivalent (18 years & older) 0.5mL IM (Influenza) 01/14/2020 12:00:00 AM EST eCW1 ([facility]) Social History Code Duration Value Status Description Data Source(s ) Smoking 01/14/2020 12:00:00 AM EST Never Smoker completed Never S moker eCW1 ([facility]) Smoking 01/14/2020 12:00:00 AM EST Never Smoker completed Never S moker eCW1 ([facility]) Smoking 08/13/2019 12:00:00 AM EDT Never Smoker completed Never S moker eCW1 ([facility]) Smoking 08/13/2019 12:00:00 AM EDT Never Smoker completed Never S moker eCW1 ([facility]) Smoking 08/13/2019 12:00:00 AM EDT Never Smoker completed Never S moker eCW1 ([facility]) Vital Signs ID Date Data Source UNK Name Value Range Interpretation Code Description Data Source(s) Diastolic blood pressure 82 mm[Hg] 82 mm[Hg] eCW1 ([facility]) Systolic blood pressure 144 mm[Hg] 144 mm[Hg] e CW1 ([facility]) Body temperature 98.7 [degF] 98.7 [degF] eCW1 ( [facility]) Respiratory rate 18 /min 18 /min eCW1 ([facility]) Heart rate 77 /min 77 /min eCW1 ([facility]) Body mass index (BMI) [Ratio] 30.52 kg/m2 30.52 kg/m2 eCW1 ([facility]) Body height 61.5 [in_i] 61.5 [in_i] eCW1 ([facility]) Body weight 164.2 [lb_av] 164.2 [lb_av] eCW1 ([facility]) Body mass index (BMI) [Ratio] 30.9 [...] (BMI) [Ratio] 31.04 kg/m2 31.04 kg/m2 eCW1 ([facility]) Body height 61.5 [in_i] 61.5 [in_i] eCW1 ([facility]) Body weight 167 [lb_av] 167 [lb_av] eCW1 ([facility]) Diastolic blood pressure 83 mm[Hg] 83 mm[Hg] eCW1 ([facility]) Systolic blood pressure 151 mm[Hg] 151 mm[Hg] e CW1 ([facility]) Body temperature 97.3 [degF] 97.3 [degF] eCW1 ( [facility]) Respiratory rate 17 /min 17 /min eCW1 ([facility]) Heart rate 84 /min 84 /min eCW1 ([facility]) Body mass index (BMI) [Ratio] 30.97 kg/m2 30.97 kg/m2 W1 ([facility]) Body height 61.5 [in_i] 61.5 [in_i] eCW1 ([facility]) Body weight 166.6 [lb_av] 166.6 [lb_av] eCW1 ([facility]) Body mass index (BMI) [Ratio] 30.63 kg/m2 30.63 kg/m2 eCW1 ([facility]) Body height 61.5 [in_us] 61.5 [in_us] eCW1 ([facility]) Body weight Measured 164.8 [lb_av] 164.8 [lb_av ] eCW1 ([facility]) Patient Treatment Plan of Care Planned Activity Planned Date Details Description Data Source (s) Diclofenac Sodium 0.01 MG/MG Topical Gel [Voltaren] 01/14/20 20 12:00:00 AM EST eCW1 ([facility]) Diclofenac Sodium 0.01 MG/MG Topical Gel [Voltaren] 01/14/20 12:00:00 AM EST eCW1 ([facility]) Carboxymethylcellulose Sodium 1 % 08/13/2019 12:00:00 AM EDT eCW1 ([facility]) Erythromycin 0.005 MG/MG Ophthalmic Ointment 08/13/2019 12:00:00 AM EDT eCW1 ([facility]) Carboxymethylcellulose Sodium 1 % 08/13/2019 12:00:00 AM EDT eCW1 ([facility]) Erythromycin 0.005 MG/MG Ophthalmic Ointment 08/13/2019 12:00:00 AM EDT eCW1 ([facility]) Carboxymethylcellulose Sodium 1 % 08/13/2019 12:00:00 AM EDT eCW1 ([facility]) Erythromycin 0.005 MG/MG Ophthalmic Ointment 08/13/2019 12:00:00 AM EDT eCW1 ([facility]) Betamethasone 0.0005 MG/MG Topical Ointment 05/03/2019 12:00:00 AM EST eCW1 ([facility])
[2020-04-29] MEDS ORDERED: DEXTROSE 50% 50 ML SYRINGE IV PRN (13:25)
[2020-04-29] MEDS ORDERED: GLUCAGON INJ 1MG VIAL SC PRN (13:25)
[2020-04-29] MEDS ORDERED: GLUCOSE 4GM CHEW TABLET PO PRN (13:25)
[2020-04-29 14:29] LABS: CALCIUM LEVEL 8.8 MG/DL (8.8-10.2); CREATININE FOR GFR 1.52 MG/DL (0.55-1.30); GLOMERULAR FILTRATION RATE 42.3 (>32); POTASSIUM SERUM 4.2 MEQ/L (3.5-5.1)
[2020-04-29 14:34] VITALS: BP 145/78
--- NOTE | 2020-04-29 14:50 | HPEPDOC ---
General Date of Admission Apr 29, 2020 at 12:54 Date of Service: Apr 29, 2020 Primary Care Physician: GINO MAIN MD Attending Physician: OBI CORDOBA MD Chief Complaint The patient is a 80-year-old female who presented with SOB Source: Patient, Old records Exam Limitations: Mild cognitive slowing Severity: Mild Associated Symptoms: Denies Symptoms History of Present Illness Pt is an 80YO F with PMH of NIDDM, HTN, GERD, CAD (?) who presents with shortness of breath and cough with a recent history of COVID positive testing. She was in quarantine for 10 days per ER provider. Pt is unable to provide appropriate history. She states something about having "twp pees and that's it." She does report sore throat and cough and shortness of breath for the past c ouple days and denies N/V/D/C at this time. During interview, she proceeds to tap on her epigastric area and states that she has pain, but this complaint is inconsistent as later she denies having abdominal pain. When asked about pt's past medical/surgical histories as well as her PCP, she does not answer the question and instead states that the hospital doctors are her doctors and she doesn't know. Pt's mentation at baseline is unknown and her son did not answer my phone call. She is cooperative during entire exam, although does elicit some emotional lability. Home Medications Scheduled Amlodipine Besylate (Amlodipine Besylate) 5 Mg Tab, 5 MG PO BID, (Reported) Atorvastatin Calcium (Atorvastatin Calcium) 20 Mg Tab, 20 MG PO DAILY, (Reported) Clopidogrel Bisulfate (Clopidogrel) 75 Mg Tab, 75 MG PO DAILY, (Reported) Fluoxetine Hcl (Fluoxetine HCl) 20 Mg Cap, 20 MG PO DAILY, (Reported) Losartan Potassium (Losartan Potassium) 100 Mg Tablet, 100 MG PO DAILY, (Reported) Metformin HCl (Metformin HCl) 500 Mg Tablet, 500 MG PO BID, (Reported) Metoprolol Tartrate (Metoprolol Tartrate) 25 Mg Tab, 25 MG PO BID, (Reported) Omeprazole (Omeprazole) 40 Mg Cap, 40 MG PO DAILY, (Reported) Sitagliptin Phosphate (Januvia) 100 Mg Tab, 100 MG PO DAILY, (Reported) Allergies Coded Allergies: phenytoin (Verified Allergy, Severe, ANAPHYLAXIS, 04/29/20) lisinopril (Verified Adverse Reaction, Intermediate, COUGH, 04/29/20) pioglitazone (Verified Adverse Reaction, Mild, FEET SWELLING, 04/29/20) risedronate sodium (Verified Adverse Reaction, Mild, FALLS, 04/29/20) Past Medical History Medical History Hx of CVA (12/2012) Vascular dementia (Paranoia and perseveration) HTN NIDDM2 CAD (?-appreciated by medication list) Mood disorder (?-appreciated by medication list) Osteoarthritis GERD Surgical History Unable to be verified as patient has baseline dementia Family History Reviewed her medical record - colonoscopy completed 09/2006 Social History Psychosocial History: Other Unable to be verified as patient has baseline dementia - Review of the medical record has indicated that the patient has not had any reported drug use or tobacco use A-FIB/CHADSVASC A-FIB History Current/History of A-Fib/PAF?: No (PCP not known) Age/Risk Factor Scoring CHADSVASC: CHADSVASC Response (Comments) Value Age Risk Factor Age >/= 75 years old 2 Gender Risk Factor Female 1 Hx of CHF No 0 Hx of HTN Yes 1 Hx of Diabetes Yes 1 Hx of Vascular Disease Yes 1 Total 6 Review of Systems Constitutional: Denies: Chills, Fever, Malaise ENT: Reports: Sore Throat; Denies: Head Aches Pulmonary: Reports: Dyspnea, Cough; Denies: Pleuritic Chest Pain Cardiovascular: Denies: Chest Pain, Palpitations Gastrointestinal: Denies: Nausea, Vomiting, Abdominal Pain, Diarrhea, Constipation Physical Examination General Exam: Positive: Alert, Cooperative, No Acute Distress Eye Exam: Positive: Conjunctiva & lids normal ENT Exam: Positive: Mucous membr. moist/pink Chest Exam: Positive: Diminished (right basilar inspiratory crackles appreciated.); Negative: Rales, Rhonchi, Wheezing Heart Exam: Positive: Rate Normal, Regular Rhythm, Normal S1, Normal S2; Negative: Murmurs, Rubs Extremity Exam: Negative: Clubbing, Cyanosis, Edema Psych Exam: Positive: Mental status NL; Negative: Mood NL (elicits mild emotional lability; frowns and expresses feeling sad without explanation towards the end of exam.) Vital Signs Vital Signs Date Time Temp Pulse Resp B/P (MAP) Pulse Ox O2 Delivery O2 Flow Rate FiO2 04/29/20 11:46 78 94 04/29/20 11:45 133/70 (91) 2/24/21 09:21 99.8 20 Laboratory Data Labs 24H Laboratory Tests 2 04/29/20 09:10: SARS Antigen (LFIA) POSITIVEH 04/29/20 09:12: Immature Granulocyte % (Auto) 0.6, Neutrophils (%) (Auto) 78.1H, Lymphocytes (%) (Auto) 16.4L, Monocytes (%) (Auto) 4.5, Eosinophils (%) (Auto) 0.2, Basophils (%) (Auto) 0.2, Neutrophils # (Auto) 6.4, Lymphocytes # (Auto) 1.4L, Monocytes # (Auto) 0.4, Eosinophils # (Auto) 0.0, Basophils # (Auto) 0.0, Nucleated Red Blood Cells % (auto) 0.0, Fibrinogen 522H, D-Dimer, Quantitative 2805.06H, Anion Gap 7L, Glomerular Filtration Rate 34.0, Lactic Acid Level 2.7*H, Calcium Level 8.6L, Ferritin 289H, Total Bilirubin 0.3, Direct Bilirubin 0.1, Aspartate Amino Transf (AST/SGOT) 19, Alanine Aminotransferase (ALT/SGPT) 16, Alkaline Phosphatase 52, Troponin I 0.08, C-Reactive Protein, Quantitative 6.04H, LL-Frf-P-Type Natriuretic Peptide 425, Total Protein 6.7, Albumin 3.1L, Albumin/Globulin Ratio 0.9L CBC/BMP Laboratory Tests 04/29/20 09:12 Assessment/Plan #COVID pneumonia - not considering remdisivir or dexamethasone at this time because pt first tested positive 10 days ago and is not hypoxia - considering supportive therapy at this time. - monitor CBC, procalcitonin, and trend procalcitonin until negative. - covering for possible bacterial on viral superimposition with ceftriaxone 1mg/day and doxycycline. - pt received pneumovax vaccination in [address] Main' note in eCW (clinical EMR system). - pt received influenza vaccination 01/[address] Main' note in eCW - Will start mucinex / acapella / incentive spirometry / tylenol PRN #NESS - Creatinine is 1.8, his baseline is 1.17. - 1 L NS ordered at maintenance flow rate. (Ceftriaxone is incompatible with LR.) - monitor BMP levels for BUN:Cr level improvement - Consider renal ultrasound if Creatinine levels do not improve. - Will check UA - Magnesium levels ordered since fluids may be continued #Weakness - PT/OT evaluation is appreciated - possibly 2/2 pneumonia. #NIDDM2 - hold home meds: metformin and Januvia during hospital course. - started on sliding scale insulin - consistent carbohydrate diet ordered #HTN - hold home med losartan due to NESS at this time. - continue amlodipine 5mg with hold parameters, SBP<110. #GERD - continue home medication: omeprazole - for discharge, please consider starting pt on H2 rosalind since pt is on clopidogrel and omeprazole decreases it's efficacy. #Dyslipidemia - continue Atorvastatin #Vascular dementia without behavioral changes - Possible superimposed delirium given current viral infection / fevers - according to Dr. Main' clinical notes - c/w fall precautions - continue ASA and Clopidogrel #Depression - continue fluoxetine. GERD - c/w Omeprazole. DVT Prophylaxis: Heparin 5000U Q8H. Plan / VTE VTE Prophylaxis Ordered?: Yes (Heparin 5000U Q8H) GME ATTESTATION My faculty preceptor for this patient encounter was physically present during the encounter and was fully available. All aspects of the patient interview, examination, medical decision making process, and medical care plan development were reviewed and approved by the faculty preceptor. The faculty preceptor is aware and concurs with the plan as stated in the body of this note and will attest to such by his/her cosignature. ATTENDING NOTE I, Obi Cordoba, have independently examined this patient and performed my own physical exam, as well as reviewed the documentation and edited where necessary. I have discussed in detail with the resident / student the findings and plan of treatment as documented by the resident / student and edited their note. I agree with their findings and treatment plan and have edited their documentation. I w ill continue to follow the patient during this hospital stay. Breezy Rodriguez DO Apr 29, 2020 14:28 OBI CORDOBA MD Apr 29, 2020 16:57
[2020-04-29] MEDS: ATORVASTATIN 20 MG TAB PO SCH (16:03)
[2020-04-29] MEDS: cefTRIAXone SOD 1 GM in D5W MINI-BAG PLUS 50 ML IV SCH (16:04)
[2020-04-29] MEDS: HumaLOG INSULIN (NovoLOG) PER UNIT SC SCH ×2 (17:45→20:10)
[2020-04-29] MEDS: DOXYCYCLINE HYCLATE 100 MG in D5W MINI-BAG PLUS 100 ML IV SCH (17:45)
[2020-04-29 19:45] LABS: CALCIUM LEVEL 8.4 MG/DL (8.8-10.2); CREATININE FOR GFR 1.42 MG/DL (0.55-1.30); GLOMERULAR FILTRATION RATE 45.8 (>32); POTASSIUM SERUM 3.7 MEQ/L (3.5-5.1)
[2020-04-29 19:48] VITALS: BP 146/65
[2020-04-29] MEDS: NYSTATIN 500,000 U/5 ML SUSP UDC SS SCH (20:20)
[2020-04-29] MEDS: guaiFENesin ER 600 MG TAB PO SCH (20:20)
[2020-04-29] MEDS: amLODIPine 5 MG TAB PO SCH (20:20)
[2020-04-29] MEDS: METOPROLOL TART 25 MG TABLET PO SCH (20:20)
[2020-04-29] MEDS: DOCUSATE SODIUM 100MG CAPSULE PO SCH (20:21)
[2020-04-29] MEDS: ACETAMINOPHEN TAB 650MG DOSE (2X325MG) PO PRN (20:52)
[2020-04-30 00:06] VITALS: BP 113/80
[2020-04-30 01:52] LABS: CALCIUM LEVEL 8.2 MG/DL (8.8-10.2); CREATININE FOR GFR 1.23 MG/DL (0.55-1.30); GLOMERULAR FILTRATION RATE 54.1 (>32); POTASSIUM SERUM 3.4 MEQ/L (3.5-5.1)
[2020-04-30] MEDS: DOXYCYCLINE HYCLATE 100 MG in D5W MINI-BAG PLUS 100 ML IV SCH ×2 (02:28→15:46)
[2020-04-30 04:19] VITALS: BP 139/60
[2020-04-30] MEDS: HEPARIN SOD (PORCINE) 5000UNITS/ML 1ML VIAL/SYRINGE SQ SCH ×3 (05:38→19:51)
[2020-04-30 08:00] VITALS: BP 126/59
[2020-04-30] MEDS: DOCUSATE SODIUM 100MG CAPSULE PO SCH ×2 (08:21→19:51)
[2020-04-30] MEDS: ATORVASTATIN 20 MG TAB PO SCH (08:21)
[2020-04-30] MEDS: CLOPIDOGREL 75 MG TAB PO SCH (08:21)
[2020-04-30] MEDS: OMEPRAZOLE 20 MG CAP PO SCH (08:21)
[2020-04-30 08:22] LABS: BLOOD UREA NITROGEN 14 MG/DL (7-18); CALCIUM LEVEL 7.7 MG/DL (8.8-10.2); CARBON DIOXIDE LEVEL 26 MEQ/L (21-32); CHLORIDE LEVEL 105 MEQ/L (98-107); CREATININE FOR GFR 0.99 MG/DL (0.55-1.30); GLOMERULAR FILTRATION RATE > 60.0 (>32); GLUCOSE, FASTING 116 MG/DL (70-100); MAGNESIUM LEVEL 1.7 MG/DL (1.8-2.4); POTASSIUM SERUM 3.4 MEQ/L (3.5-5.1); SODIUM LEVEL 138 MEQ/L (136-145)
[2020-04-30] MEDS: METOPROLOL TART 25 MG TABLET PO SCH (08:22)
[2020-04-30] MEDS: guaiFENesin ER 600 MG TAB PO SCH ×2 (08:22→19:51)
[2020-04-30] MEDS: FLUoxetine 20 MG CAP PO SCH (08:22)
[2020-04-30] MEDS: amLODIPine 5 MG TAB PO SCH (08:23)
[2020-04-30] MEDS: HumaLOG INSULIN (NovoLOG) PER UNIT SC SCH ×4 (08:23→19:34)
[2020-04-30] MEDS: NYSTATIN 500,000 U/5 ML SUSP UDC SS SCH ×3 (08:23→19:51)
[2020-04-30] MEDS ORDERED: POTASSIUM CHLORIDE 10 MEQ SR TABLET PO ONE (09:15)
[2020-04-30] MEDS ORDERED: MAG SULF 1GM/100ML (MAG RUN) 1 GM in IV 1 EA IV ONE (09:15)
--- NOTE | 2020-04-30 09:24 | ECGEPIP ---
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
--- NOTE | 2020-04-30 09:56 | IPNPDOC ---
Text Note Date of Service The patient was seen on 04/30/20. NOTE Subjective: Pt is an 80YO F on hospital day 1 who presented with shortness of breath and cough with a recent history of COVID positive testing. Patient has vascular dementia and therefore, she was difficult to elicit a history on admission and on interview today. She expresses weakness and no appetite at this time. She denies any headaches, fevers, chills, abdominal pain or shortness of breath at this time. She was febrile shortly after admission yesterday, fever broke last night after Tylenol use. Patient's oxygen saturation was stable around 96% on 1 L nasal cannula overnight. Nursing staff noted her oxygen saturation during the day today was at 92% on 2L NC and a BP reading of 97/56. Objective: General: Pleasant, NAD, generalized weakness appreciated due to mild sluggishness cooperating on exam. HEENT: NC, AT. EOMI, no scleral icterus. No pharyngeal erythema, mucous membranes moist. Neck: No lymphadenopathy or JVD CV: RRR, Normal S1 and S2. No murmurs, gallops, or rubs. Resp: CTAB with full breath sounds. No wheezes, crackles, or rhonchi. No dullness to percussion. Abdomen: Bowel sounds present. Soft, NT, ND. Extremities: No swelling or edema. Assessment/Plan: #COVID pneumonia - pt first tested positive 10 days ago - covering for possible bacterial on viral superimposition with ceftriaxone 1mg/day and doxycycline. - pt received pneumovax vaccination [place] [address] Main' note in [facility] (clinical EMR system). - pt received influenza vaccination 01/[address] Main' note in [facility] - repeat CXR ordered today AM, since fluid was administered yesterday, showed no significant change from yesterday, atelectasis of lower left and mid and lower right lung zones. - Continue mucinex / acapella / incentive spirometry / tylenol PRN - procalcitonin is negative today, less likely bacterial cause. - CBC repeated today, results pending. - ferritin and CRP levels increased from yesterday - Start IV dexamethasone 6mg IV q24h. #Hypotension - possibly 2/2 decreased fluid intake, pt expresses decreased appetite - 500 bolus NS given - hold htn medications per parameters stated below. - decreased metoprolol dose from 25mg to 12.5mg PO. - ordered ua with reflex to culture, CBC, and blood cultures x2 to rule out sepsis etiology #NESS - likely resolved, Creatinine is 1.17, his baseline is 1.17. - Another 500 mL NS ordered today at maintenance flow rate. (Ceftriaxone is incompatible with LR.) - monitor BMP for BUN:Cr level to be sure stable - Consider renal ultrasound if Creatinine levels increase again. - Magnesium levels ordered since fluids continued #Electrolyte Disturbances - Hypomagnesemia- resolved - Hypokalemia- resolved - likely 2/2 to fluid administration yesterday #Weakness - PT/OT evaluation is appreciated - possibly 2/2 pneumonia. #NIDDM2 - hold home meds: metformin and Januvia during hospital course. - started on sliding scale insulin - consistent carbohydrate diet ordered #HTN - hold home med losartan due to NESS at this time. - continue amlodipine 5mg with hold parameters, SBP<110. - decreased metoprolol dose from 25mg to 12.5mg due to hypotensive episode today. #GERD - continue home medication: omeprazole - for discharge, please consider starting pt on H2 rosalind since pt is on clopidogrel and omeprazole decreases it's efficacy. #Dyslipidemia - continue Atorvastatin #Vascular dementia without behavioral changes - Possible superimposed delirium given current viral infection / fevers - according to Dr. Main' clinical notes - c/w fall precautions - continue ASA and Clopidogrel #Depression - continue fluoxetine. #GERD - c/w Omeprazole. DVT Prophylaxis: Heparin 5000U Q8H. VS,Fishbone, I+O VS, Fishbone, I+O Laboratory Tests 04/29/20 13:35 04/29/20 19:07 04/30/20 01:05 04/30/20 07:31 Vital Signs Date Time Temp Pulse Resp B/P (MAP) Pulse Ox O2 Delivery O2 Flow Rate FiO2 04/30/20 08:22 85 125/59 04/30/20 08:00 97.6 16 88 Nasal Cannula 2.0 I&O- Last 24 Hours up to 6 AM 04/30/20 05:59 Intake Total 2180 ml Output Total 325 ml Balance 1855 ml GME ATTESTATION My faculty preceptor for this patient encounter was physically present during the encounter and was fully available. All aspects of the patient interview, examination, medical decision making process, and medical care plan development were reviewed and approved by the faculty preceptor. The faculty preceptor is aware and concurs with the plan as stated in the body of this note and will atte st to such by his/her cosignature. ATTENDING NOTE I, Obi Ramirez, have independently examined this patient and performed my own physical exam, as well as reviewed the documentation and edited where necessary. I have discussed in detail with the resident / student the findings and plan of treatment as documented by the resident / student and edited their note. I agree with their findings and treatment plan and have edited their documentation. I will continue to follow the patient during this hospital stay. Breezy Rodriguez DO Apr 30, 2020 09:56 OBI RAMIREZ MD Apr 30, 2020 13:29
--- NOTE | 2020-04-30 11:56 | REP ---
INDICATION: Hypoxia. COMPARISON: 04/29/2020. TECHNIQUE: SINGLE PORTABLE AP VIEW OF THE CHEST WAS PERFORMED. FINDINGS: Right mid and lower lung infiltrates appear stable. Left basilar infiltrate appears stable. Cardiomegaly is again noted. The mediastinal silhouette is unchanged. There degenerative changes of the spine. IMPRESSION: Stable exam. <Electronically signed by Pavel Velez > 04/30/20 0038
[2020-04-30 12:00] VITALS: BP 110/64
[2020-04-30 14:51] LABS: CALCIUM LEVEL 8.6 MG/DL (8.8-10.2); CREATININE FOR GFR 1.17 MG/DL (0.55-1.30); GLOMERULAR FILTRATION RATE 57.3 (>32); POTASSIUM SERUM 4.3 MEQ/L (3.5-5.1)
[2020-04-30] MEDS: cefTRIAXone SOD 1 GM in D5W MINI-BAG PLUS 50 ML IV SCH (14:52)
[2020-04-30] MEDS: ACETAMINOPHEN TAB 650MG DOSE (2X325MG) PO PRN (15:13)
[2020-04-30] MEDS ORDERED: NS 500 ML IV SCH (16:40)
[2020-04-30 16:50] LABS: D-DIMER QUANT 2120.37 ng/ml (<500)
[2020-04-30 17:02] LABS: C REACTIVE PROTEIN QUANTITATIV 6.41 MG/DL (0.00-0.30)
[2020-04-30 17:51] LABS: BASO % 0.1 % (0.0-1.0); EOS % 0.1 % (0.0-3.0); HEMATOCRIT 33.9 % (36.0-47.0); HEMOGLOBIN 10.6 g/dl (12.0-15.5); LYMPH # 2.2 10^3/uL (1.5-5.0); LYMPH % 29.8 % (24.0-44.0); MEAN CORPUSCULAR HEMOGLOBIN 28.2 pg (27.0-33.0); MEAN CORPUSCULAR HGB CONC 31.3 g/dl (32.0-36.5); MEAN CORPUSCULAR VOLUME 90.2 fl (80.0-96.0); MONO # 0.5 10^3/uL (0.0-0.8); MONO % 6.5 % (2.0-8.0); NEUTROPHILS # 4.7 10^3/uL (1.5-8.5); PLATELET COUNT, AUTOMATED 306 10^3/uL (150-450); RED BLOOD COUNT 3.76 10^6/uL (4.00-5.40); WHITE BLOOD COUNT 7.4 10^3/uL (4.0-10.0)
[2020-04-30] MEDS: dexameTHASONE 4 MG/ML 1ML VIAL (J1100 PER 1MG) IV SCH (18:39)
[2020-04-30 19:30] VITALS: BP 109/53
[2020-04-30] MEDS: METOPROLOL TART 12.5 MG PER 1/2 TAB PO SCH (19:33)
[2020-04-30 19:44] LABS: BLOOD UREA NITROGEN 14 MG/DL (7-18); CALCIUM LEVEL 7.9 MG/DL (8.8-10.2); CARBON DIOXIDE LEVEL 25 MEQ/L (21-32); CHLORIDE LEVEL 106 MEQ/L (98-107); CREATININE FOR GFR 1.08 MG/DL (0.55-1.30); GLOMERULAR FILTRATION RATE > 60.0 (>32); GLUCOSE, FASTING 155 MG/DL (70-100); POTASSIUM SERUM 3.9 MEQ/L (3.5-5.1); SODIUM LEVEL 138 MEQ/L (136-145)
[2020-05-01 00:05] VITALS: BP 112/57
[2020-05-01] MEDS: DOXYCYCLINE HYCLATE 100 MG in D5W MINI-BAG PLUS 100 ML IV SCH ×2 (03:33→14:29)
[2020-05-01 04:16] VITALS: BP 114/55
[2020-05-01] MEDS: HEPARIN SOD (PORCINE) 5000UNITS/ML 1ML VIAL/SYRINGE SQ SCH ×3 (05:00→21:21)
[2020-05-01 07:23] LABS: D-DIMER QUANT 1908.67 ng/ml (<500)
[2020-05-01 07:37] LABS: BLOOD UREA NITROGEN 14 MG/DL (7-18); C REACTIVE PROTEIN QUANTITATIV 6.64 MG/DL (0.00-0.30); CALCIUM LEVEL 8.1 MG/DL (8.8-10.2); CARBON DIOXIDE LEVEL 25 MEQ/L (21-32); CHLORIDE LEVEL 107 MEQ/L (98-107); FERRITIN 611 NG/ML (8-252); GLOMERULAR FILTRATION RATE > 60.0 (>32); GLUCOSE, FASTING 213 MG/DL (70-100); POTASSIUM SERUM 4.1 MEQ/L (3.5-5.1); SODIUM LEVEL 139 MEQ/L (136-145)
[2020-05-01] MEDS: NYSTATIN 500,000 U/5 ML SUSP UDC SS SCH ×3 (07:57→21:21)
[2020-05-01] MEDS: HumaLOG INSULIN (NovoLOG) PER UNIT SC SCH ×4 (07:57→19:34)
[2020-05-01] MEDS: FLUoxetine 20 MG CAP PO SCH (07:58)
[2020-05-01] MEDS: OMEPRAZOLE 20 MG CAP PO SCH (07:58)
[2020-05-01] MEDS: DOCUSATE SODIUM 100MG CAPSULE PO SCH ×2 (07:58→21:00)
[2020-05-01] MEDS: CLOPIDOGREL 75 MG TAB PO SCH (07:58)
[2020-05-01] MEDS: ATORVASTATIN 20 MG TAB PO SCH (07:58)
[2020-05-01] MEDS: guaiFENesin ER 600 MG TAB PO SCH ×2 (07:58→21:20)
[2020-05-01 08:00] VITALS: BP 115/74
[2020-05-01] MEDS: METOPROLOL TART 12.5 MG PER 1/2 TAB PO SCH ×2 (08:00→21:20)
--- NOTE | 2020-05-01 10:47 | IPNPDOC ---
Text Note Date of Service The patient was seen on 05/01/20. NOTE Subjective: Pt is an 80YO F on hospital day 2 who presented with shortness of breath and cough with a recent history of COVID positive testing. Patient has vascular dementia and therefore, it was difficult to elicit a history on admission. Pt is interacting better at today's interview. She is talking and expressing increasing appetite. She was sitting up in her bedside chair. She denies any headaches, fevers, chills, abdominal pain or shortness of breath at this time. Pt's oxygen saturation has improved and is 96% on RA. She is alert and cooperative during exam. Objective: General: Pleasant, NAD, improved cooperation on exam, pt is now able to sit upright in her bedside chair. HEENT: NC, AT. EOMI, no scleral icterus. No pharyngeal erythema, mucous membranes moist. Neck: No lymphadenopathy or JVD CV: RRR, Normal S1 and S2. No murmurs, gallops, or rubs. No lower extremity edema. Resp: CTAB with full breath sounds. No wheezes, crackles, or rhonchi. No dullness to percussion. Abdomen: Bowel sounds present. Soft, NT, ND. Extremities: No swelling or edema. Assessment/Plan: #COVID pneumonia - pt first tested positive 11 days ago - covering for possible bacterial on viral superimposition with ceftriaxone 1mg/day and doxycycline. - pt received pneumovax vaccination in [address] Main' note in [facility] (clinical EMR system). - pt received influenza vaccination 01/[address] Main' note in [facility] - repeat CXR showed no significant change, atelectasis of lower left and mid and lower right lung zones. - Continue mucinex / acapella / incentive spirometry / tylenol PRN - procalcitonin is negative,less likely bacterial cause. - CBC repeated today, results pending. - ferritin and CRP levels were increased on 04/30/20 - Continue IV dexamethasone 6mg IV q24h (Day #2) #Hypotension - resolved. - possibly 2/2 decreased fluid intake, pt expresses decreased appetite - 1500mL bolus NS given during hospital course thus far. - holding htn medications per parameters stated below. - decreased metoprolol dose from 25mg to 12.5mg PO. - ordered ua with reflex to culture, CBC, and blood cultures x2 to rule out sepsis etiology, pending. - no leukocytosis at this time. #NESS - likely resolved, Creatinine is 1.00, his baseline is 1.17. - monitor BMP for BUN:Cr level to be sure stable - Consider renal ultrasound if Creatinine levels increase again. - Magnesium levels ordered #Electrolyte Disturbances - Hypomagnesemia- resolved - Hypokalemia- resolved - likely 2/2 to fluid administration yesterday #Weakness - PT/OT evaluation is appreciated - possibly 2/2 pneumonia. #NIDDM2 - hold home meds: metformin and Januvia during hospital course. - started on sliding scale insulin - consistent carbohydrate diet ordered #HTN - hold home med losartan due to NESS at this time. - s/p amlodipine 5mg - decreased metoprolol dose from 25mg to 12.5mg due to hypotensive episodes #GERD - continue home medication: omeprazole - for discharge, please consider starting pt on H2 rosalind since pt is on clopidogrel and omeprazole decreases it's efficacy. #Dyslipidemia - continue Atorvastatin #Vascular dementia without behavioral changes - Possible superimposed delirium given current viral infection / fevers - according to Dr. Main' clinical notes - c/w fall precautions - continue ASA and Clopidogrel #Depression - continue fluoxetine. #GERD - c/w Omeprazole. DVT Prophylaxis: Heparin 5000U Q8H. VS,Fishbone, I+O VS, Fishbone, I+O Laboratory Tests 04/30/20 14:01 04/30/20 17:25 04/30/20 18:57 05/01/20 06:45 Vital Signs Date Time Temp Pulse Resp B/P (MAP) Pulse Ox O2 Delivery O2 Flow Rate FiO2 05/01/20 08:00 97.6 84 16 115/74 (88) 95 Room Air 05/01/20 04:16 2.0 I&O- Last 24 Hours up to 6 AM 05/01/20 06:00 Intake Total 1260 ml Balance 1260 ml GME ATTESTATION My faculty preceptor for this patient encounter was physically present during the encounter and was fully available. All aspects of the patient interview, examination, medical decision making process, and medical care plan development were reviewed and approved by the faculty preceptor. The faculty preceptor is aware and concurs with the plan as stated in the body of this note and will attest to such by his/her cosignature. ATTENDING NOTE I, Obi Ramirez, have independently examined this patient and performed my own physical exam, as well as reviewed the documentation and edited where necessary. I have discussed in detail with the resident / student the findings and plan of treatment as documented by the resident / student and edited their note. I agree with their findings and treatment plan and have edited their documentation. I will continue to follow the patient during this hospital stay. Breezy Rodriguez DO May 01, 2020 10:47 OBI RAMIREZ MD May 01, 2020 14:07
[2020-05-01 13:20] VITALS: BP 147/75
[2020-05-01] MEDS: cefTRIAXone SOD 1 GM in D5W MINI-BAG PLUS 50 ML IV SCH (13:35)
[2020-05-01] MEDS: ACETAMINOPHEN TAB 650MG DOSE (2X325MG) PO PRN ×2 (15:53→21:20)
[2020-05-01 16:00] VITALS: BP 129/70
[2020-05-01] MEDS: dexameTHASONE 4 MG/ML 1ML VIAL (J1100 PER 1MG) IV SCH (17:20)
[2020-05-01 20:00] VITALS: BP 120/66
[2020-05-02] MEDS: DOXYCYCLINE HYCLATE 100 MG in D5W MINI-BAG PLUS 100 ML IV SCH ×2 (03:06→15:08)
[2020-05-02 04:00] VITALS: BP 154/90
[2020-05-02] MEDS: HEPARIN SOD (PORCINE) 5000UNITS/ML 1ML VIAL/SYRINGE SQ SCH ×3 (05:52→19:49)
[2020-05-02 06:34] LABS: HEMATOCRIT 35.1 % (36.0-47.0); MEAN CORPUSCULAR HEMOGLOBIN 28.2 pg (27.0-33.0); MEAN CORPUSCULAR HGB CONC 31.3 g/dl (32.0-36.5); PLATELET COUNT, AUTOMATED 397 10^3/uL (150-450); WHITE BLOOD COUNT 11.7 10^3/uL (4.0-10.0)
[2020-05-02 06:48] LABS: D-DIMER QUANT 1389.01 ng/ml (<500)
[2020-05-02 07:11] LABS: BLOOD UREA NITROGEN 10 MG/DL (7-18); C REACTIVE PROTEIN QUANTITATIV 5.71 MG/DL (0.00-0.30); CALCIUM LEVEL 8.7 MG/DL (8.8-10.2); CARBON DIOXIDE LEVEL 26 MEQ/L (21-32); CHLORIDE LEVEL 106 MEQ/L (98-107); CREATININE FOR GFR 0.93 MG/DL (0.55-1.30); FERRITIN 594 NG/ML (8-252); GLOMERULAR FILTRATION RATE > 60.0 (>32); GLUCOSE, FASTING 219 MG/DL (70-100); MAGNESIUM LEVEL 1.7 MG/DL (1.8-2.4); POTASSIUM SERUM 4.1 MEQ/L (3.5-5.1); SODIUM LEVEL 137 MEQ/L (136-145)
[2020-05-02] MEDS: ATORVASTATIN 20 MG TAB PO SCH (08:10)
[2020-05-02] MEDS: FLUoxetine 20 MG CAP PO SCH (08:10)
[2020-05-02] MEDS: guaiFENesin ER 600 MG TAB PO SCH ×2 (08:10→19:52)
[2020-05-02] MEDS: CLOPIDOGREL 75 MG TAB PO SCH (08:10)
[2020-05-02] MEDS: NYSTATIN 500,000 U/5 ML SUSP UDC SS SCH ×3 (08:10→19:49)
[2020-05-02] MEDS: OMEPRAZOLE 20 MG CAP PO SCH (08:10)
[2020-05-02] MEDS: HumaLOG INSULIN (NovoLOG) PER UNIT SC SCH ×4 (08:10→19:50)
[2020-05-02] MEDS: METOPROLOL TART 12.5 MG PER 1/2 TAB PO SCH ×2 (08:15→19:51)
[2020-05-02] MEDS: DOCUSATE SODIUM 100MG CAPSULE PO SCH ×2 (08:29→19:52)
--- NOTE | 2020-05-02 09:37 | REP ---
INDICATION: elevated white count, rule out URI. COMPARISON: 04/30/2020. TECHNIQUE: SINGLE PORTABLE AP VIEW OF THE CHEST WAS PERFORMED. FINDINGS: The previously noted bilateral infiltrates have improved with mild bibasilar residual infiltrate. There is mild cardiomegaly. There is calcification of the thoracic aorta. The mediastinal silhouette is unchanged. There are degenerative changes of the spine. IMPRESSION: Mild residual bibasilar infiltrates, with improvement since the prior study. <Electronically signed by Pavel Velez > 05/02/20 0933
--- NOTE | 2020-05-02 09:55 | IPNPDOC ---
Text Note Date of Service The patient was seen on 05/02/20. NOTE Subjective: Pt is an 80YO F on hospital day 2 who presented with shortness of breath and cough with a recent history of COVID positive testing. Patient has vascular dementia and therefore, it was difficult to elicit a history on admission. Pt is interacting well at today's interview. She is talking and expressing increasing appetite. She reports worsening rigors and body aches. She is in bed and nurse is feeding her during examination. She denies any headaches, fevers, c hills, abdominal pain or shortness of breath at this time. Pt's oxygen saturation has improved and is 97% on RA. She is alert and cooperative during exam. Objective: General: Pleasant, NAD, improved cooperation on exam, pt appears to be more weak from yesterday's exam as she is in bed and not moving her extremities as easily. HEENT: NC, AT. EOMI, no scleral icterus. No pharyngeal erythema, mucous membranes moist. Oral thrush improving. Neck: No lymphadenopathy or JVD CV: RRR, Normal S1 and S2. No murmurs, gallops, or rubs. No lower extremity edema. Resp: CTAB with full breath sounds. No wheezes, crackles, or rhonchi. No dullness to percussion. Abdomen: Bowel sounds present. Soft, NT, ND. Extremities: No swelling or edema. Assessment/Plan: #COVID pneumonia - pt first tested positive 11 days ago - covering for possible bacterial on viral superimposition with ceftriaxone 1mg/day and doxycycline. - pt received pneumovax vaccination in [address] Main' note in [facility] (clinical EMR system). - pt received influenza vaccination 01/[address] Main' note in [facility] - repeat CXR showed no significant change, atelectasis of lower left and mid and lower right lung zones. - Continue mucinex / acapella / incentive spirometry / tylenol PRN - procalcitonin has slightly increased to 0.09 today. - monitor procalcitonin tomorrow. - Inflammatory markers: CRP, d-dimer, ferritin are trending down. - CXR repeated today - improvement noted - Continue IV dexamethasone 6mg IV q24h (Day #3) #Hypotension - resolved. - possibly 2/2 decreased fluid intake, pt expresses decreased appetite - 1500mL bolus NS given during hospital course thus far. - holding htn medications per parameters stated below. - decreased metoprolol dose from 25mg to 12.5mg PO. - ordered ua with reflex to culture, CBC, and blood cultures x2 to rule out sepsis etiology. - UA and urine culture appear contaminated - No growth in blood cultures - leukocytosis on 05/02/2020, likely 2/2 dexamethasone use, continue to monitor. #NESS - likely resolved, Creatinine is 0.93, his baseline is 1.17. - monitor BMP for BUN:Cr level to be sure stable - Consider renal ultrasound if Creatinine levels increase again. - Magnesium levels ordered #Electrolyte Disturbances - Hypomagnesemia- resolved - Hypokalemia- resolved - likely 2/2 to fluid administration yesterday #Weakness - PT/OT evaluation is appreciated - possibly 2/2 pneumonia. #NIDDM2 - hold home meds: metformin and Januvia during hospital course. - started on sliding scale insulin - consistent carbohydrate diet ordered #HTN - hold home med losartan due to NESS at this time. - Restart amlodipine 5mg SBP, holding parameters SBP less than 110 - decreased metoprolol dose from 25mg to 12.5mg due to hypotensive episodes #GERD - continue home medication: omeprazole - for discharge, please consider starting pt on H2 rosalind since pt is on clopi dogrel and omeprazole decreases it's efficacy. #Dyslipidemia - continue Atorvastatin #Vascular dementia without behavioral changes - Possible superimposed delirium given current viral infection / fevers - according to Dr. Main' clinical notes - c/w fall precautions - continue ASA and Clopidogrel #Depression - continue fluoxetine. #GERD - c/w Omeprazole. DVT Prophylaxis: Heparin 5000U Q8H. VS,Fishbone, I+O VS, Fishbone, I+O Laboratory Tests 05/02/20 05:29 Vital Signs Date Time Temp Pulse Resp B/P (MAP) Pulse Ox O2 Delivery O2 Flow Rate FiO2 05/02/20 08:15 72 168/79 05/02/20 04:00 98.0 18 94 Room Air 05/01/20 04:16 2.0 I&O- Last 24 Hours up to 6 AM 05/02/20 06:00 Intake Total 2080 ml Output Total 0 ml Balance 2080 ml GME ATTESTATION GME ATTESTATION My faculty preceptor for this patient encounter was physically present during the encounter and was fully available. All aspects of the patient interview, examination, medical decision making process, and medical care plan development were reviewed and approved by the faculty preceptor. The faculty preceptor is aware and concurs with the plan as stated in the body of this note and will attest to such by his/her cosignature. ATTENDING NOTE I, Obi Ramirez, have independently examined this patient and performed my own physical exam, as well as reviewed the documentation and edited where necessary. I have discussed in detail with the resident / student the findings and plan of treatment as documented by the resident / student and edited their note. I agree with their findings and treatment plan and have edited their documentation. I will continue to follow the patient during this hospital stay. Breezy Rodriguez DO May 02, 2020 09:55 OBI RAMIREZ MD May 02, 2020 10:03
[2020-05-02] MEDS: ACETAMINOPHEN TAB 650MG DOSE (2X325MG) PO PRN ×2 (10:15→19:51)
[2020-05-02] MEDS: amLODIPine 5 MG TAB PO SCH ×2 (10:18→19:52)
[2020-05-02] MEDS ORDERED: MAG SULF 1GM/100ML (MAG RUN) 1 GM in IV 1 EA IV ONE (10:30)
[2020-05-02 13:33] LABS: BODY FLUID CULTURE Not indicated. (.); LEGIONELLA ANTIGEN URINE Negative (Negative); ORGANISM ID Not indicated. (.); SPECIMEN SOURCE Urine (.); URINE STREP PNEUMONIAE ANTIGEN Negative (Negative)
[2020-05-02 14:00] VITALS: BP 125/78
[2020-05-02] MEDS: cefTRIAXone SOD 1 GM in D5W MINI-BAG PLUS 50 ML IV SCH (15:09)
[2020-05-02] MEDS: dexameTHASONE 4 MG/ML 1ML VIAL (J1100 PER 1MG) IV SCH (17:06)
[2020-05-02 20:00] VITALS: BP 120/66
[2020-05-03] MEDS: DOXYCYCLINE HYCLATE 100 MG in D5W MINI-BAG PLUS 100 ML IV SCH (03:05)
[2020-05-03 04:00] VITALS: BP 128/70
[2020-05-03] MEDS: HEPARIN SOD (PORCINE) 5000UNITS/ML 1ML VIAL/SYRINGE SQ SCH ×3 (04:20→21:10)
[2020-05-03 07:55] LABS: HEMATOCRIT 35.4 % (36.0-47.0); HEMOGLOBIN 11.3 g/dl (12.0-15.5); MEAN CORPUSCULAR HEMOGLOBIN 28.5 pg (27.0-33.0); MEAN CORPUSCULAR HGB CONC 31.9 g/dl (32.0-36.5); MEAN CORPUSCULAR VOLUME 89.2 fl (80.0-96.0); PLATELET COUNT, AUTOMATED 427 10^3/uL (150-450); RED BLOOD COUNT 3.97 10^6/uL (4.00-5.40); WHITE BLOOD COUNT 13.9 10^3/uL (4.0-10.0)
[2020-05-03 08:00] VITALS: BP 125/75
[2020-05-03] MEDS: NYSTATIN 500,000 U/5 ML SUSP UDC SS SCH (08:02)
[2020-05-03] MEDS: amLODIPine 5 MG TAB PO SCH ×2 (08:02→21:12)
[2020-05-03] MEDS: FLUoxetine 20 MG CAP PO SCH (08:03)
[2020-05-03] MEDS: guaiFENesin ER 600 MG TAB PO SCH ×2 (08:03→21:11)
[2020-05-03] MEDS: ATORVASTATIN 20 MG TAB PO SCH (08:03)
[2020-05-03] MEDS: CLOPIDOGREL 75 MG TAB PO SCH (08:03)
[2020-05-03] MEDS: OMEPRAZOLE 20 MG CAP PO SCH (08:03)
[2020-05-03] MEDS: METOPROLOL TART 12.5 MG PER 1/2 TAB PO SCH ×2 (08:04→21:11)
[2020-05-03] MEDS: HumaLOG INSULIN (NovoLOG) PER UNIT SC SCH ×4 (08:04→20:54)
[2020-05-03] MEDS: DOCUSATE SODIUM 100MG CAPSULE PO SCH ×2 (08:04→21:00)
[2020-05-03 08:10] LABS: D-DIMER QUANT 1259.77 ng/ml (<500)
[2020-05-03 08:19] LABS: BLOOD UREA NITROGEN 15 MG/DL (7-18); C REACTIVE PROTEIN QUANTITATIV 8.37 MG/DL (0.00-0.30); CALCIUM LEVEL 8.2 MG/DL (8.8-10.2); CARBON DIOXIDE LEVEL 25 MEQ/L (21-32); CHLORIDE LEVEL 104 MEQ/L (98-107); CREATININE FOR GFR 1.01 MG/DL (0.55-1.30); FERRITIN 705 NG/ML (8-252); GLOMERULAR FILTRATION RATE > 60.0 (>32); GLUCOSE, FASTING 233 MG/DL (70-100); MAGNESIUM LEVEL 1.9 MG/DL (1.8-2.4); POTASSIUM SERUM 3.7 MEQ/L (3.5-5.1); SODIUM LEVEL 139 MEQ/L (136-145)
[2020-05-03] MEDS ORDERED: LevoFLOXacin IV 750 MG in IV 1 EA IV SCH (09:00)
--- NOTE | 2020-05-03 09:41 | REP ---
INDICATION: Leukocytosis. COMPARISON: 05/02/2020. TECHNIQUE: SINGLE PORTABLE AP VIEW OF THE CHEST WAS PERFORMED. FINDINGS: The right lung infiltrates have essentially resolved. Mild patchy infiltrate in the left retrocardiac region is unchanged. Once again there is mild cardiomegaly and calcification of the thoracic aorta. The mediastinal silhouette is unchanged. There are degenerative changes of the spine. IMPRESSION: Right lung infiltrates appear to have essentially resolved. Mild left retrocardiac infiltrate inferiorly appears unchanged. <Electronically signed by Pavel Velez > 05/03/20 0937
[2020-05-03] MEDS: LevoFLOXacin IV 750 MG in IV 1 EA IV SCH (09:54)
--- NOTE | 2020-05-03 10:42 | IPNPDOC ---
Text Note Date of Service The patient was seen on 05/03/20. NOTE Subjective: Patient is an 80-year-old female who presented to [facility] after reporting shortness of breath and cough. Patient was found to have a recent COVID19 positive test and was admitted to the hospital service for further evaluation and treatment. Patient was seen and examined at the bedside. Currently patient reports that she feels relatively fine, still reports a cough. Denies any nausea, vomiting, chest pain, abdominal pain, diarrhea, or discomfort with urination. Objective: Vitals (See below) General: Lying in bed, appears comfortable, AAOx2 (Person / Place) HEENT: NC, AT CVS: +S1S2 Lungs: Fair air entry b/l, -w/r/r Abdomen: Soft, ND, NT Extremities: - Edema, - Calf tenderness Assessment and plan: COVID19 pneumonia; possibly superimposed bacterial pneumonia - Currently denies any shortness of breath. Does report a cough - Not requiring oxygen - Physical without any adventitious lung sounds - Positive testing on 04/29/2020 - Leukocytosis / Increase in inflammatory markers - MRSA negative / Legionella and Strep pneumonia antigens negative - Imaging noted - c/w Dexamethasone (Day #4) - Will stop Ceftriaxone and Doxycycline (Day#5); Will start Levofloxacin (Day #1); will trend PCT - Will c/w Mucinex / Acapella / Incentive spirometry s/p NESS - Cr has normalized - Will avoid nephrotoxic medications - s/p IV fluid hydration Electrolyte Disturbances - s/p Hypokalemia - s/p Hypomagnesemia Weakness - c/w PT and OT - Recommending rehab currently NIDDM2 - c/w ISS HTN - BP well controlled - Losartan on hold - c/w Amlodipine / Metoprolol (Adjusted dose) with hold parameters DLP - c/w Atorvastatin Vascular dementia without behavioral changes - Possible superimposed delirium given current viral infection / fevers - c/w fall precautions - c/w ASA, Plavix Depression - c/w Fluoxetine GERD - c/w Omeprazole DVT Prophylaxis - c/w Heparin Disposition: - Anticipate transition to rehab when medically cleared VS,Fishbone, I+O VS, Fishbone, I+O Laboratory Tests 05/03/20 07:29 Vital Signs Date Time Temp Pulse Resp B/P (MAP) Pulse Ox O2 Delivery O2 Flow Rate FiO2 05/03/20 08:02 73 125/75 05/03/20 08:00 98.3 16 95 Room Air 05/01/20 04:16 2.0 I&O- Last 24 Hours up to 6 AM 05/03/20 06:00 Intake Total 2400 ml Output Total 250 ml Balance 2150 ml JIM RAMIREZ MD May 03, 2020 10:42
[2020-05-03 14:00] VITALS: BP 114/58
[2020-05-03] MEDS: dexameTHASONE 4 MG/ML 1ML VIAL (J1100 PER 1MG) IV SCH (17:21)
[2020-05-03] MEDS ORDERED: ONDANSETRON 4MG/2ML VIAL IV ONE (18:45)
[2020-05-03 20:00] VITALS: BP 122/60
[2020-05-03] MEDS: ACETAMINOPHEN TAB 650MG DOSE (2X325MG) PO PRN (21:10)
[2020-05-04] VITALS (9 sets, daily range): BP systolic 109–139; BP diastolic 64–78; O2SAT 92–98
[2020-05-04] MEDS: HEPARIN SOD (PORCINE) 5000UNITS/ML 1ML VIAL/SYRINGE SQ SCH (06:00)
[2020-05-04 07:15] LABS: HEMOGLOBIN 11.4 g/dl (12.0-15.5); MEAN CORPUSCULAR HEMOGLOBIN 28.5 pg (27.0-33.0); MEAN CORPUSCULAR HGB CONC 31.7 g/dl (32.0-36.5); PLATELET COUNT, AUTOMATED 493 10^3/uL (150-450)
[2020-05-04 07:28] LABS: D-DIMER QUANT 2572.27 ng/ml (<500)
[2020-05-04 07:55] LABS: C REACTIVE PROTEIN QUANTITATIV 4.46 MG/DL (0.00-0.30); CALCIUM LEVEL 8.6 MG/DL (8.8-10.2); CREATININE FOR GFR 1.19 MG/DL (0.55-1.30); GLOMERULAR FILTRATION RATE 56.2 (>32)
[2020-05-04] MEDS: OMEPRAZOLE 20 MG CAP PO SCH (08:34)
[2020-05-04] MEDS: HumaLOG INSULIN (NovoLOG) PER UNIT SC SCH ×4 (08:34→19:35)
[2020-05-04] MEDS: guaiFENesin ER 600 MG TAB PO SCH ×2 (08:34→19:34)
[2020-05-04] MEDS: amLODIPine 5 MG TAB PO SCH ×2 (08:35→19:35)
[2020-05-04] MEDS: DOCUSATE SODIUM 100MG CAPSULE PO SCH ×2 (08:35→19:35)
[2020-05-04] MEDS: FLUoxetine 20 MG CAP PO SCH (08:35)
[2020-05-04] MEDS: CLOPIDOGREL 75 MG TAB PO SCH (08:35)
[2020-05-04] MEDS: METOPROLOL TART 12.5 MG PER 1/2 TAB PO SCH ×2 (08:35→19:35)
[2020-05-04] MEDS: ATORVASTATIN 20 MG TAB PO SCH (08:35)
--- NOTE | 2020-05-04 08:36 | IPNPDOC ---
Text Note Date of Service The patient was seen on 05/04/20. NOTE Subjective: Patient is an 80-year-old female who presented to [facility] after reporting shortness of breath and cough. Patient was found to have a recent COVID19 positive test and was admitted to the hospital service for further evaluation and treatment. Patient was seen and examined at the bedside. Patient is laying in bed, appears to be comfortable. Reports that her breathing is not doing bed, currently reports a mild cough. Has not experience any nausea, vomiting, abdominal pain, diarrhea, or discomfort with urination. Objective: Vitals (See below) General: Patient is laying in bed, appears to be comfortable, not in any acute distress, is awake and alert, oriented to person, place, not to time HEENT: Normocephalic and atraumatic CVS: +S1S2 Lungs: There appears to be fair air entry bilaterally; no evidence of crackles, wheezing or rhonchi Abdomen: Abdomen is soft without any pain. She did tenderness or distention Extremities: Again, there is no lower extremity edema appreciated Assessment and plan: COVID19 pneumonia; possibly superimposed bacterial pneumonia - Patient reports her breathing is doing relatively fine - Saturating well on room air - Positive testing on 04/29/2020 - Leukocytosis appears to be plateauing / CRP improving - MRSA negative / Legionella and Strep pneumonia antigens negative - Imaging noted - c/w Dexamethasone (Day #5) - c/w Levofloxacin (Day #2); s/p Ceftriaxone and Doxycycline (Day#5); PCT pending this morning - c/w Mucinex / Acapella / Incentive spirometry s/p NESS - Cr has normalized - Will avoid nephrotoxic medications - s/p IV fluid hydration Electrolyte Disturbances - s/p Hypokalemia - s/p Hypomagnesemia Weakness - c/w PT and OT - Recommending rehab currently NIDDM2 - c/w ISS HTN - BP remains well controlled - s/p Losartan - c/w Amlodipine / Metoprolol (Adjusted dose) with hold parameters DLP - c/w Atorvastatin Vascular dementia without behavioral changes - Possible superimposed delirium given current viral infection / fevers - c/w fall precautions - c/w ASA, Plavix Depression - c/w Fluoxetine GERD - c/w Omeprazole DVT Prophylaxis - Will increase Lovenox to weight based prophylactic dosing Disposition: - Anticipate transition to rehab when medically cleared VS,Fishbone, I+O VS, Fishbone, I+O Laboratory Tests 05/04/20 06:32 Vital Signs Date Time Temp Pulse Resp B/P (MAP) Pulse Ox O2 Delivery O2 Flow Rate FiO2 05/04/20 04:00 98.6 59 18 123/75 (91) 95 Room Air 05/01/20 04:16 2.0 I&O- Last 24 Hours up to 6 AM 05/04/20 06:00 Intake Total 900 ml Output Total 1 ml Balance 899 ml JIM RAMIREZ MD May 04, 2020 08:36
[2020-05-04] MEDS ORDERED: ENOXAPARIN 40MG/0.4ML SYRINGE (J1650 PER 10MG) SC ONE (12:00)
[2020-05-04] MEDS: dexameTHASONE 4 MG/ML 1ML VIAL (J1100 PER 1MG) IV SCH (17:56)
[2020-05-04] MEDS: ACETAMINOPHEN TAB 650MG DOSE (2X325MG) PO PRN (18:08)
[2020-05-04] MEDS: ENOXAPARIN 40MG/0.4ML SYRINGE (J1650 PER 10MG) SC SCH (19:35)
[2020-05-05 03:54] VITALS: BP 140/81
[2020-05-05 04:00] VITALS: O2SAT 94
[2020-05-05 07:47] LABS: HEMATOCRIT 35.4 % (36.0-47.0); HEMOGLOBIN 11.2 g/dl (12.0-15.5); MEAN CORPUSCULAR HEMOGLOBIN 28.2 pg (27.0-33.0); MEAN CORPUSCULAR HGB CONC 31.6 g/dl (32.0-36.5); MEAN CORPUSCULAR VOLUME 89.2 fl (80.0-96.0); PLATELET COUNT, AUTOMATED 528 10^3/uL (150-450); RED BLOOD COUNT 3.97 10^6/uL (4.00-5.40); WHITE BLOOD COUNT 12.3 10^3/uL (4.0-10.0)
[2020-05-05 08:00] VITALS: O2SAT 97
[2020-05-05 08:26] LABS: BLOOD UREA NITROGEN 23 MG/DL (7-18); C REACTIVE PROTEIN QUANTITATIV 2.03 MG/DL (0.00-0.30); CALCIUM LEVEL 8.7 MG/DL (8.8-10.2); CARBON DIOXIDE LEVEL 27 MEQ/L (21-32); CHLORIDE LEVEL 103 MEQ/L (98-107); CREATININE FOR GFR 1.02 MG/DL (0.55-1.30); FERRITIN 597 NG/ML (8-252); GLOMERULAR FILTRATION RATE > 60.0 (>32); GLUCOSE, FASTING 259 MG/DL (70-100); POTASSIUM SERUM 4.7 MEQ/L (3.5-5.1); SODIUM LEVEL 138 MEQ/L (136-145)
[2020-05-05 08:35] LABS: D-DIMER QUANT 1024.62 ng/ml (<500)
[2020-05-05] MEDS ORDERED: predniSONE 20 MG TAB PO SCH (09:00)
[2020-05-05] MEDS: ENOXAPARIN 40MG/0.4ML SYRINGE (J1650 PER 10MG) SC SCH ×2 (09:15→20:49)
[2020-05-05] MEDS: LevoFLOXacin IV 750 MG in IV 1 EA IV SCH (09:15)
[2020-05-05] MEDS: CLOPIDOGREL 75 MG TAB PO SCH (09:17)
[2020-05-05] MEDS: ATORVASTATIN 20 MG TAB PO SCH (09:17)
[2020-05-05] MEDS: FLUoxetine 20 MG CAP PO SCH (09:18)
[2020-05-05] MEDS: amLODIPine 5 MG TAB PO SCH ×2 (09:18→20:50)
[2020-05-05] MEDS: OMEPRAZOLE 20 MG CAP PO SCH (09:18)
[2020-05-05] MEDS: guaiFENesin ER 600 MG TAB PO SCH ×2 (09:18→20:50)
[2020-05-05] MEDS: DOCUSATE SODIUM 100MG CAPSULE PO SCH ×2 (09:18→20:50)
[2020-05-05] MEDS: HumaLOG INSULIN (NovoLOG) PER UNIT SC SCH ×4 (09:19→20:49)
[2020-05-05] MEDS: METOPROLOL TART 12.5 MG PER 1/2 TAB PO SCH ×2 (09:19→20:51)
[2020-05-05] MEDS: ACETAMINOPHEN TAB 650MG DOSE (2X325MG) PO PRN (09:30)
--- NOTE | 2020-05-05 10:47 | IPNPDOC ---
Text Note Date of Service The patient was seen on 05/05/20. NOTE Subjective: Patient is an 80-year-old female who presented to [facility] after reporting shortness of breath and cough. Patient was found to have a recent COVID19 positive test and was admitted to the hospital service for further evaluation and treatment. Patient was seen and examined at the bedside. She reports an uneventful evening. Reports that she still is experiencing a productive cough. Denies any chest pain, has not experience any nausea, vomiting, abdominal pain, diarrhea, or discomfort with urination. Objective: Vitals (See below) General: Patient is laying in bed, appears comfortable, not in any acute dis tress, is awake and alert, oriented to person HEENT: Normocephalic and atraumatic CVS: +S1S2 Lungs: There appears to be fair air entry bilaterally without evidence of crackles, wheezing or rhonchi Abdomen: Soft, nondistended, nontender Extremities: No edema Assessment and plan: COVID19 pneumonia; possibly superimposed bacterial pneumonia - Reports a productive cough - Continues to saturate well on room air - Positive testing on 04/29/2020 - Leukocytosis and CRP are improving - MRSA negative / Legionella and Strep pneumonia antigens negative - Imaging noted - Will DC Dexamethasone (Day #5); will start prednisone taper - c/w Levofloxacin (Day #3); s/p Ceftriaxone and Doxycycline (Day#5); - c/w Mucinex / Acapella / Incentive spirometry s/p NESS - Cr has normalized - Will avoid nephrotoxic medications - s/p IV fluid hydration Electrolyte Disturbances - s/p Hypokalemia - s/p Hypomagnesemia Weakness - c/w PT and OT - Recommending rehab currently - Will transition to ALC status today NIDDM2 - c/w ISS HTN - BP remains well controlled - s/p Losartan - c/w Amlodipine / Metoprolol (Adjusted dose) with hold parameters DLP - c/w Atorvastatin Vascular dementia without behavioral changes - Possible superimposed delirium given current viral infection / fevers - c/w fall precautions - c/w ASA, Plavix Depression - c/w Fluoxetine GERD - c/w Omeprazole DVT Prophylaxis - c/w Lovenox weight based prophylactic dosing Disposition: - Anticipate transition to rehab when medically cleared - ALC status today VS,Fishbone, I+O VS, Fishbone, I+O Laboratory Tests 05/05/20 06:44 Vital Signs Date Time Temp Pulse Resp B/P (MAP) Pulse Ox O2 Delivery O2 Flow Rate FiO2 05/05/20 09:19 80 130/65 05/05/20 08:00 97 Room Air 05/05/20 03:54 97.2 18 05/01/20 04:16 2.0 I&O- Last 24 Hours up to 6 AM 05/05/20 06:00 Intake Total 960 ml Balance 960 ml JIM RAMIREZ MD May 05, 2020 10:47
[2020-05-05] MEDS: predniSONE 20 MG TAB PO SCH (11:44)
[2020-05-05] MEDS: LevoFLOXacin 750 MG TABLET PO SCH (11:44)
[2020-05-05 16:00] VITALS: BP 122/78
[2020-05-05 20:00] VITALS: O2SAT 100
[2020-05-06 05:46] VITALS: BP 145/79; O2SAT 98
[2020-05-06 06:34] LABS: HEMATOCRIT 35.4 % (36.0-47.0); HEMOGLOBIN 11.4 g/dl (12.0-15.5); MEAN CORPUSCULAR HEMOGLOBIN 28.9 pg (27.0-33.0); MEAN CORPUSCULAR HGB CONC 32.2 g/dl (32.0-36.5); MEAN CORPUSCULAR VOLUME 89.6 fl (80.0-96.0); PLATELET COUNT, AUTOMATED 566 10^3/uL (150-450); RED BLOOD COUNT 3.95 10^6/uL (4.00-5.40); WHITE BLOOD COUNT 10.7 10^3/uL (4.0-10.0)
[2020-05-06 07:02] LABS: BLOOD UREA NITROGEN 20 MG/DL (7-18); CALCIUM LEVEL 8.7 MG/DL (8.8-10.2); CARBON DIOXIDE LEVEL 27 MEQ/L (21-32); CHLORIDE LEVEL 104 MEQ/L (98-107); CREATININE FOR GFR 1.01 MG/DL (0.55-1.30); GLOMERULAR FILTRATION RATE > 60.0 (>32); GLUCOSE, FASTING 207 MG/DL (70-100); POTASSIUM SERUM 4.2 MEQ/L (3.5-5.1); SODIUM LEVEL 138 MEQ/L (136-145)
[2020-05-06 07:34] LABS: C REACTIVE PROTEIN QUANTITATIV 1.13 MG/DL (0.00-0.30); FERRITIN 452 NG/ML (8-252)
[2020-05-06 08:00] VITALS: O2SAT 97
[2020-05-06 08:05] VITALS: BP 141/68
[2020-05-06] MEDS: METOPROLOL TART 12.5 MG PER 1/2 TAB PO SCH ×2 (08:10→20:07)
[2020-05-06] MEDS: ENOXAPARIN 40MG/0.4ML SYRINGE (J1650 PER 10MG) SC SCH ×2 (08:10→20:05)
[2020-05-06] MEDS: OMEPRAZOLE 20 MG CAP PO SCH (08:10)
[2020-05-06] MEDS: CLOPIDOGREL 75 MG TAB PO SCH (08:10)
[2020-05-06] MEDS: HumaLOG INSULIN (NovoLOG) PER UNIT SC SCH ×4 (08:10→20:05)
[2020-05-06] MEDS: ATORVASTATIN 20 MG TAB PO SCH (08:10)
[2020-05-06] MEDS: predniSONE 20 MG TAB PO SCH (08:11)
[2020-05-06] MEDS: DOCUSATE SODIUM 100MG CAPSULE PO SCH ×2 (08:11→20:07)
[2020-05-06] MEDS: amLODIPine 5 MG TAB PO SCH ×2 (08:11→20:06)
[2020-05-06] MEDS: FLUoxetine 20 MG CAP PO SCH (08:11)
[2020-05-06] MEDS: guaiFENesin ER 600 MG TAB PO SCH ×2 (08:11→20:06)
[2020-05-06 12:00] VITALS: O2SAT 99
[2020-05-06 16:00] VITALS: O2SAT 96
[2020-05-06 20:00] VITALS: BP 130/85; O2SAT 95
[2020-05-07 04:00] VITALS: BP 145/75; O2SAT 94
[2020-05-07 05:44] LABS: HEMATOCRIT 35.7 % (36.0-47.0); HEMOGLOBIN 11.4 g/dl (12.0-15.5); MEAN CORPUSCULAR HEMOGLOBIN 28.5 pg (27.0-33.0); MEAN CORPUSCULAR HGB CONC 31.9 g/dl (32.0-36.5); MEAN CORPUSCULAR VOLUME 89.3 fl (80.0-96.0); PLATELET COUNT, AUTOMATED 602 10^3/uL (150-450); WHITE BLOOD COUNT 12.1 10^3/uL (4.0-10.0)
[2020-05-07 08:00] VITALS: O2SAT 6; O2SAT 96
[2020-05-07] MEDS: ENOXAPARIN 40MG/0.4ML SYRINGE (J1650 PER 10MG) SC SCH ×2 (08:14→21:34)
[2020-05-07] MEDS: OMEPRAZOLE 20 MG CAP PO SCH (08:15)
[2020-05-07] MEDS: HumaLOG INSULIN (NovoLOG) PER UNIT SC SCH ×4 (08:15→21:35)
[2020-05-07] MEDS: ATORVASTATIN 20 MG TAB PO SCH (08:15)
[2020-05-07] MEDS: FLUoxetine 20 MG CAP PO SCH (08:15)
[2020-05-07] MEDS: predniSONE 20 MG TAB PO SCH (08:16)
[2020-05-07] MEDS: guaiFENesin ER 600 MG TAB PO SCH ×2 (08:16→21:26)
[2020-05-07] MEDS: LevoFLOXacin 750 MG TABLET PO SCH (08:16)
[2020-05-07] MEDS: CLOPIDOGREL 75 MG TAB PO SCH (08:16)
[2020-05-07] MEDS: DOCUSATE SODIUM 100MG CAPSULE PO SCH ×2 (08:16→21:26)
[2020-05-07] MEDS: METOPROLOL TART 12.5 MG PER 1/2 TAB PO SCH ×2 (08:19→21:33)
[2020-05-07] MEDS: amLODIPine 5 MG TAB PO SCH ×2 (08:19→21:33)
[2020-05-07 12:00] VITALS: O2SAT 98
[2020-05-07 14:08] VITALS: BP 112/69
[2020-05-07 16:00] VITALS: O2SAT 98
[2020-05-07 20:00] VITALS: BP 113/72; O2SAT 95
[2020-05-08] VITALS: O2SAT 95
[2020-05-08 03:30] VITALS: BP 124/75; O2SAT 96
[2020-05-08 04:54] LABS: HEMATOCRIT 35.6 % (36.0-47.0); HEMOGLOBIN 11.2 g/dl (12.0-15.5); MEAN CORPUSCULAR HGB CONC 31.5 g/dl (32.0-36.5); PLATELET COUNT, AUTOMATED 550 10^3/uL (150-450); WHITE BLOOD COUNT 11.5 10^3/uL (4.0-10.0)
[2020-05-08 08:12] VITALS: O2SAT 98
[2020-05-08] MEDS: predniSONE 20 MG TAB PO SCH (08:12)
[2020-05-08] MEDS: FLUoxetine 20 MG CAP PO SCH (08:12)
[2020-05-08] MEDS: guaiFENesin ER 600 MG TAB PO SCH ×2 (08:12→20:32)
[2020-05-08] MEDS: HumaLOG INSULIN (NovoLOG) PER UNIT SC SCH ×4 (08:12→20:47)
[2020-05-08] MEDS: ENOXAPARIN 40MG/0.4ML SYRINGE (J1650 PER 10MG) SC SCH ×2 (08:13→20:31)
[2020-05-08] MEDS: ATORVASTATIN 20 MG TAB PO SCH (08:13)
[2020-05-08] MEDS: OMEPRAZOLE 20 MG CAP PO SCH (08:13)
[2020-05-08] MEDS: CLOPIDOGREL 75 MG TAB PO SCH (08:13)
[2020-05-08] MEDS: DOCUSATE SODIUM 100MG CAPSULE PO SCH ×2 (08:13→20:32)
[2020-05-08] MEDS: METOPROLOL TART 12.5 MG PER 1/2 TAB PO SCH ×2 (08:16→20:36)
[2020-05-08] MEDS: amLODIPine 5 MG TAB PO SCH ×2 (08:16→20:36)
[2020-05-08 08:18] VITALS: BP 103/74
[2020-05-09 06:34] VITALS: BP 104/56
[2020-05-09] MEDS: HumaLOG INSULIN (NovoLOG) PER UNIT SC SCH ×4 (07:51→21:14)
[2020-05-09 08:00] VITALS: BP 112/60; O2SAT 99
[2020-05-09] MEDS: guaiFENesin ER 600 MG TAB PO SCH ×2 (08:13→21:16)
[2020-05-09] MEDS: OMEPRAZOLE 20 MG CAP PO SCH (08:13)
[2020-05-09] MEDS: CLOPIDOGREL 75 MG TAB PO SCH (08:13)
[2020-05-09] MEDS: FLUoxetine 20 MG CAP PO SCH (08:13)
[2020-05-09] MEDS: LevoFLOXacin 750 MG TABLET PO SCH (08:13)
[2020-05-09] MEDS: ATORVASTATIN 20 MG TAB PO SCH (08:13)
[2020-05-09] MEDS: ENOXAPARIN 40MG/0.4ML SYRINGE (J1650 PER 10MG) SC SCH ×2 (08:13→21:14)
[2020-05-09] MEDS: DOCUSATE SODIUM 100MG CAPSULE PO SCH ×2 (08:13→21:16)
[2020-05-09] MEDS: predniSONE 20 MG TAB PO SCH (08:14)
[2020-05-09] MEDS: amLODIPine 5 MG TAB PO SCH ×2 (08:15→21:00)
[2020-05-09] MEDS: METOPROLOL TART 12.5 MG PER 1/2 TAB PO SCH ×2 (08:15→21:00)
[2020-05-09 12:00] VITALS: O2SAT 98
[2020-05-09] MEDS: ACETAMINOPHEN TAB 650MG DOSE (2X325MG) PO PRN (12:52)
[2020-05-09 16:00] VITALS: O2SAT 96
[2020-05-10 06:26] VITALS: BP 111/59
[2020-05-10 08:30] VITALS: O2SAT 98
[2020-05-10 08:45] VITALS: BP 129/75
[2020-05-10] MEDS: HumaLOG INSULIN (NovoLOG) PER UNIT SC SCH ×4 (08:46→20:27)
[2020-05-10] MEDS: ENOXAPARIN 40MG/0.4ML SYRINGE (J1650 PER 10MG) SC SCH ×2 (08:47→20:27)
[2020-05-10] MEDS: CLOPIDOGREL 75 MG TAB PO SCH (08:49)
[2020-05-10] MEDS: predniSONE 20 MG TAB PO SCH (08:49)
[2020-05-10] MEDS: guaiFENesin ER 600 MG TAB PO SCH ×2 (08:49→20:26)
[2020-05-10] MEDS: OMEPRAZOLE 20 MG CAP PO SCH (08:49)
[2020-05-10] MEDS: FLUoxetine 20 MG CAP PO SCH (08:49)
[2020-05-10] MEDS: ATORVASTATIN 20 MG TAB PO SCH (08:49)
[2020-05-10] MEDS: ACETAMINOPHEN TAB 650MG DOSE (2X325MG) PO PRN ×2 (08:50→20:26)
[2020-05-10] MEDS: DOCUSATE SODIUM 100MG CAPSULE PO SCH ×2 (08:50→20:26)
[2020-05-10] MEDS: METOPROLOL TART 12.5 MG PER 1/2 TAB PO SCH ×2 (08:50→20:26)
[2020-05-10] MEDS: amLODIPine 5 MG TAB PO SCH ×2 (08:50→20:26)
[2020-05-10 12:00] VITALS: O2SAT 98
[2020-05-10 20:00] VITALS: BP 122/66
[2020-05-11] MEDS: HumaLOG INSULIN (NovoLOG) PER UNIT SC SCH ×4 (07:42→21:00)
[2020-05-11 08:00] VITALS: BP 129/68; O2SAT 98
[2020-05-11] MEDS: LevoFLOXacin 750 MG TABLET PO SCH (08:14)
[2020-05-11] MEDS: DOCUSATE SODIUM 100MG CAPSULE PO SCH ×2 (08:14→21:30)
[2020-05-11] MEDS: guaiFENesin ER 600 MG TAB PO SCH ×2 (08:14→21:30)
[2020-05-11] MEDS: ENOXAPARIN 40MG/0.4ML SYRINGE (J1650 PER 10MG) SC SCH ×2 (08:14→21:30)
[2020-05-11] MEDS: OMEPRAZOLE 20 MG CAP PO SCH (08:15)
[2020-05-11] MEDS: predniSONE 20 MG TAB PO SCH (08:15)
[2020-05-11] MEDS: ACETAMINOPHEN TAB 650MG DOSE (2X325MG) PO PRN (08:15)
[2020-05-11] MEDS: CLOPIDOGREL 75 MG TAB PO SCH (08:15)
[2020-05-11] MEDS: amLODIPine 5 MG TAB PO SCH ×2 (08:15→21:00)
[2020-05-11] MEDS: ATORVASTATIN 20 MG TAB PO SCH (08:15)
[2020-05-11] MEDS: FLUoxetine 20 MG CAP PO SCH (08:15)
[2020-05-11] MEDS: METOPROLOL TART 12.5 MG PER 1/2 TAB PO SCH ×2 (08:15→21:00)
[2020-05-11 12:00] VITALS: O2SAT 98
[2020-05-11 16:00] VITALS: BP 133/78
[2020-05-12 06:00] VITALS: BP 106/47
[2020-05-12] MEDS: ENOXAPARIN 40MG/0.4ML SYRINGE (J1650 PER 10MG) SC SCH ×2 (07:53→20:40)
[2020-05-12] MEDS: FLUoxetine 20 MG CAP PO SCH (07:53)
[2020-05-12] MEDS: HumaLOG INSULIN (NovoLOG) PER UNIT SC SCH ×4 (07:53→20:27)
[2020-05-12] MEDS: predniSONE 20 MG TAB PO SCH (07:53)
[2020-05-12] MEDS: guaiFENesin ER 600 MG TAB PO SCH ×2 (07:53→20:40)
[2020-05-12] MEDS: OMEPRAZOLE 20 MG CAP PO SCH (07:54)
[2020-05-12] MEDS: DOCUSATE SODIUM 100MG CAPSULE PO SCH ×2 (07:54→20:40)
[2020-05-12] MEDS: ACETAMINOPHEN TAB 650MG DOSE (2X325MG) PO PRN (07:54)
[2020-05-12] MEDS: ATORVASTATIN 20 MG TAB PO SCH (07:55)
[2020-05-12] MEDS: CLOPIDOGREL 75 MG TAB PO SCH (07:55)
[2020-05-12] MEDS: amLODIPine 5 MG TAB PO SCH ×2 (07:57→20:42)
[2020-05-12] MEDS: METOPROLOL TART 12.5 MG PER 1/2 TAB PO SCH ×2 (07:57→20:42)
[2020-05-13] MEDS: HumaLOG INSULIN (NovoLOG) PER UNIT SC SCH ×4 (08:58→21:25)
[2020-05-13] MEDS: ENOXAPARIN 40MG/0.4ML SYRINGE (J1650 PER 10MG) SC SCH ×2 (08:59→21:24)
[2020-05-13] MEDS: guaiFENesin ER 600 MG TAB PO SCH ×2 (08:59→21:24)
[2020-05-13] MEDS: predniSONE 20 MG TAB PO SCH (08:59)
[2020-05-13] MEDS: OMEPRAZOLE 20 MG CAP PO SCH (08:59)
[2020-05-13] MEDS: FLUoxetine 20 MG CAP PO SCH (08:59)
[2020-05-13] MEDS: CLOPIDOGREL 75 MG TAB PO SCH (08:59)
[2020-05-13] MEDS: DOCUSATE SODIUM 100MG CAPSULE PO SCH ×2 (08:59→21:23)
[2020-05-13] MEDS: ATORVASTATIN 20 MG TAB PO SCH (08:59)
[2020-05-13] MEDS: MIRALAX *UNIT DOSE* 17GM PACKET PO PRN (09:00)
[2020-05-13] MEDS: METOPROLOL TART 12.5 MG PER 1/2 TAB PO SCH ×2 (09:00→21:23)
[2020-05-13] MEDS: amLODIPine 5 MG TAB PO SCH ×2 (09:00→21:24)
--- NOTE | 2020-05-13 12:17 | IPNPDOC ---
Text Note Date of Service The patient was seen on 05/13/20. NOTE Subjective: In the morning family members comes to the hospital to evaluate patient for home care, however during physical therapy patient was not on her baseline, recommendation from PT OT to transfer patient to subacute rehabilitation. No any acute events overnight Objective: GENERAL APPEARANCE: NAD HEENT: no scleral icterus, no JVD, EOMI CARDIOVASCULAR: S1S2 LUNGS: CTA ABDOMEN: soft & not tender w palpitation MUSCULOSKELETAL: no cyanosis, no swelling INTEGUMENT: no generalized pallor NEUROLOGICAL: cranial nerve function from 2-12 intact intact, follows commands, speech not dysarthric Assessment and plan: Status post COVID19 pneumonia; possibly superimposed bacterial pneumonia Patient completed the course of antibiotics, continue taper prednisone - c/w Mucinex / Acapella / Incentive spirometry s/p NESS Resolved Continue to monitor Electrolyte Disturbances Will check BMP today Weakness - c/w PT and OT - Recommending subacute rehab currently NIDDM2 - c/w ISS HTN Blood pressure under control Continue home cardioprotective medications DLP - c/w Atorvastatin Vascular dementia without behavioral changes - Possible superimposed delirium given current viral infection / fevers - c/w fall precautions - c/w ASA, Plavix Depression - c/w Fluoxetine GERD - c/w Omeprazole DVT Prophylaxis - c/w Lovenox weight based prophylactic dosing VS,Fishbone, I+O VS, Fishbone, I+O Vital Signs Date Time Temp Pulse Resp B/P (MAP) Pulse Ox O2 Delivery O2 Flow Rate FiO2 05/13/20 09:00 68 123/74 05/13/20 06:00 97.2 18 94 Room Air I&O- Last 24 Hours up to 6 AM 05/13/20 06:00 Intake Total 630 ml Balance 630 ml REGGIE NUNO DO May 13, 2020 12:17
[2020-05-13 13:34] LABS: BLOOD UREA NITROGEN 20 MG/DL (7-18); CALCIUM LEVEL 8.9 MG/DL (8.8-10.2); CARBON DIOXIDE LEVEL 31 MEQ/L (21-32); CHLORIDE LEVEL 104 MEQ/L (98-107); CREATININE FOR GFR 1.06 MG/DL (0.55-1.30); GLOMERULAR FILTRATION RATE > 60.0 (>32); GLUCOSE, FASTING 319 MG/DL (70-100); POTASSIUM SERUM 4.5 MEQ/L (3.5-5.1); SODIUM LEVEL 139 MEQ/L (136-145)
[2020-05-13 22:00] VITALS: BP 122/76
[2020-05-14 06:00] VITALS: BP 150/82
[2020-05-14 06:58] LABS: BASO % 0.1 % (0.0-1.0); EOS # 0.1 10^3/uL (0.0-0.5); EOS % 0.5 % (0.0-3.0); HEMATOCRIT 34.8 % (36.0-47.0); HEMOGLOBIN 11.2 g/dl (12.0-15.5); LYMPH # 3.2 10^3/uL (1.5-5.0); LYMPH % 22.4 % (24.0-44.0); MEAN CORPUSCULAR HEMOGLOBIN 28.9 pg (27.0-33.0); MEAN CORPUSCULAR HGB CONC 32.2 g/dl (32.0-36.5); MEAN CORPUSCULAR VOLUME 89.7 fl (80.0-96.0); MONO # 0.8 10^3/uL (0.0-0.8); MONO % 5.8 % (2.0-8.0); NEUTROPHILS # 10.1 10^3/uL (1.5-8.5); NEUTROPHILS % 70.5 % (36.0-66.0); PLATELET COUNT, AUTOMATED 446 10^3/uL (150-450); RED BLOOD COUNT 3.88 10^6/uL (4.00-5.40); WHITE BLOOD COUNT 14.3 10^3/uL (4.0-10.0)
[2020-05-14 07:28] LABS: BLOOD UREA NITROGEN 17 MG/DL (7-18); CALCIUM LEVEL 8.8 MG/DL (8.8-10.2); CARBON DIOXIDE LEVEL 30 MEQ/L (21-32); CHLORIDE LEVEL 105 MEQ/L (98-107); CREATININE FOR GFR 0.93 MG/DL (0.55-1.30); GLOMERULAR FILTRATION RATE > 60.0 (>32); GLUCOSE, FASTING 203 MG/DL (70-100); POTASSIUM SERUM 3.7 MEQ/L (3.5-5.1); SODIUM LEVEL 140 MEQ/L (136-145)
[2020-05-14] MEDS ORDERED: predniSONE 10 MG TAB PO SCH (09:00)
[2020-05-14] MEDS: HumaLOG INSULIN (NovoLOG) PER UNIT SC SCH ×4 (09:18→21:16)
[2020-05-14] MEDS: ENOXAPARIN 40MG/0.4ML SYRINGE (J1650 PER 10MG) SC SCH ×2 (09:19→21:14)
[2020-05-14] MEDS: guaiFENesin ER 600 MG TAB PO SCH ×2 (09:19→21:14)
[2020-05-14] MEDS: amLODIPine 5 MG TAB PO SCH ×2 (09:20→21:15)
[2020-05-14] MEDS: DOCUSATE SODIUM 100MG CAPSULE PO SCH ×2 (09:20→21:14)
[2020-05-14] MEDS: ATORVASTATIN 20 MG TAB PO SCH (09:21)
[2020-05-14] MEDS: FLUoxetine 20 MG CAP PO SCH (09:21)
[2020-05-14] MEDS: CLOPIDOGREL 75 MG TAB PO SCH (09:21)
[2020-05-14] MEDS: predniSONE 5 MG TAB PO SCH (09:21)
[2020-05-14] MEDS: METOPROLOL TART 12.5 MG PER 1/2 TAB PO SCH ×2 (09:22→21:15)
[2020-05-14] MEDS: OMEPRAZOLE 20 MG CAP PO SCH (09:22)
[2020-05-14] MEDS ORDERED: FLEET ENEMA PR PRN (11:00)
[2020-05-15 06:00] VITALS: BP 146/78
[2020-05-15 06:36] LABS: BASO % 0.3 % (0.0-1.0); EOS # 0.1 10^3/uL (0.0-0.5); EOS % 1.2 % (0.0-3.0); HEMATOCRIT 37.8 % (36.0-47.0); HEMOGLOBIN 11.9 g/dl (12.0-15.5); LYMPH # 3.6 10^3/uL (1.5-5.0); LYMPH % 29.2 % (24.0-44.0); MEAN CORPUSCULAR HGB CONC 31.5 g/dl (32.0-36.5); MEAN CORPUSCULAR VOLUME 92.2 fl (80.0-96.0); MONO # 0.7 10^3/uL (0.0-0.8); MONO % 5.6 % (2.0-8.0); NEUTROPHILS # 7.7 10^3/uL (1.5-8.5); NEUTROPHILS % 63.3 % (36.0-66.0); PLATELET COUNT, AUTOMATED 335 10^3/uL (150-450); WHITE BLOOD COUNT 12.2 10^3/uL (4.0-10.0)
[2020-05-15 06:58] LABS: BLOOD UREA NITROGEN 20 MG/DL (7-18); CALCIUM LEVEL 9.2 MG/DL (8.8-10.2); CARBON DIOXIDE LEVEL 29 MEQ/L (21-32); CHLORIDE LEVEL 104 MEQ/L (98-107); CREATININE FOR GFR 0.86 MG/DL (0.55-1.30); GLOMERULAR FILTRATION RATE > 60.0 (>32); GLUCOSE, FASTING 198 MG/DL (70-100); POTASSIUM SERUM 4.7 MEQ/L (3.5-5.1); SODIUM LEVEL 140 MEQ/L (136-145)
[2020-05-15] MEDS: HumaLOG INSULIN (NovoLOG) PER UNIT SC SCH ×4 (08:46→21:36)
[2020-05-15] MEDS: guaiFENesin ER 600 MG TAB PO SCH ×2 (08:47→21:35)
[2020-05-15] MEDS: FLUoxetine 20 MG CAP PO SCH (08:47)
[2020-05-15] MEDS: CLOPIDOGREL 75 MG TAB PO SCH (08:47)
[2020-05-15] MEDS: predniSONE 5 MG TAB PO SCH (08:47)
[2020-05-15] MEDS: METOPROLOL TART 12.5 MG PER 1/2 TAB PO SCH ×2 (08:47→21:35)
[2020-05-15] MEDS: MIRALAX *UNIT DOSE* 17GM PACKET PO PRN (08:47)
[2020-05-15] MEDS: amLODIPine 5 MG TAB PO SCH ×2 (08:47→21:36)
[2020-05-15] MEDS: OMEPRAZOLE 20 MG CAP PO SCH (08:47)
[2020-05-15] MEDS: ATORVASTATIN 20 MG TAB PO SCH (08:47)
[2020-05-15] MEDS: DOCUSATE SODIUM 100MG CAPSULE PO SCH ×2 (08:47→21:35)
[2020-05-15] MEDS: ENOXAPARIN 40MG/0.4ML SYRINGE (J1650 PER 10MG) SC SCH ×2 (08:48→21:36)
[2020-05-16 06:00] VITALS: BP 125/58
[2020-05-16 07:49] LABS: BASO # 0.1 10^3/uL (0.0-0.2); BASO % 0.5 % (0.0-1.0); EOS # 0.2 10^3/uL (0.0-0.5); EOS % 1.6 % (0.0-3.0); HEMOGLOBIN 10.9 g/dl (12.0-15.5); LYMPH # 3.3 10^3/uL (1.5-5.0); LYMPH % 30.9 % (24.0-44.0); MEAN CORPUSCULAR HEMOGLOBIN 28.9 pg (27.0-33.0); MEAN CORPUSCULAR HGB CONC 31.1 g/dl (32.0-36.5); MEAN CORPUSCULAR VOLUME 92.8 fl (80.0-96.0); MONO # 0.8 10^3/uL (0.0-0.8); MONO % 7.1 % (2.0-8.0); NEUTROPHILS # 6.4 10^3/uL (1.5-8.5); NEUTROPHILS % 59.2 % (36.0-66.0); PLATELET COUNT, AUTOMATED 393 10^3/uL (150-450); RED BLOOD COUNT 3.77 10^6/uL (4.00-5.40); WHITE BLOOD COUNT 10.8 10^3/uL (4.0-10.0)
[2020-05-16 08:02] LABS: BLOOD UREA NITROGEN 22 MG/DL (7-18); CALCIUM LEVEL 8.8 MG/DL (8.8-10.2); CARBON DIOXIDE LEVEL 32 MEQ/L (21-32); CHLORIDE LEVEL 105 MEQ/L (98-107); CREATININE FOR GFR 0.92 MG/DL (0.55-1.30); GLOMERULAR FILTRATION RATE > 60.0 (>32); GLUCOSE, FASTING 216 MG/DL (70-100); MAGNESIUM LEVEL 1.9 MG/DL (1.8-2.4); POTASSIUM SERUM 4.3 MEQ/L (3.5-5.1); SODIUM LEVEL 141 MEQ/L (136-145)
[2020-05-16] MEDS: HumaLOG INSULIN (NovoLOG) PER UNIT SC SCH ×4 (08:54→21:00)
[2020-05-16] MEDS: DOCUSATE SODIUM 100MG CAPSULE PO SCH ×2 (08:54→22:01)
[2020-05-16] MEDS: ENOXAPARIN 40MG/0.4ML SYRINGE (J1650 PER 10MG) SC SCH ×2 (08:54→22:03)
[2020-05-16] MEDS: FLUoxetine 20 MG CAP PO SCH (08:54)
[2020-05-16] MEDS: ATORVASTATIN 20 MG TAB PO SCH (08:55)
[2020-05-16] MEDS: OMEPRAZOLE 20 MG CAP PO SCH (08:55)
[2020-05-16] MEDS: CLOPIDOGREL 75 MG TAB PO SCH (08:55)
[2020-05-16] MEDS: amLODIPine 5 MG TAB PO SCH ×2 (08:55→22:02)
[2020-05-16] MEDS: guaiFENesin ER 600 MG TAB PO SCH ×2 (08:55→22:02)
[2020-05-16] MEDS: predniSONE 5 MG TAB PO SCH (08:55)
[2020-05-16] MEDS: METOPROLOL TART 12.5 MG PER 1/2 TAB PO SCH ×2 (08:55→22:02)
[2020-05-16 21:55] VITALS: BP 130/86
[2020-05-16] MEDS: LEVEMIR (INSULIN DETEMIR) 1 UNITS/0.01ML SC SCH (22:03)
[2020-05-17 06:00] VITALS: BP 151/67
[2020-05-17 06:45] LABS: BASO # 0.1 10^3/uL (0.0-0.2); BASO % 0.6 % (0.0-1.0); EOS # 0.2 10^3/uL (0.0-0.5); HEMATOCRIT 34.8 % (36.0-47.0); HEMOGLOBIN 10.8 g/dl (12.0-15.5); LYMPH # 3.5 10^3/uL (1.5-5.0); LYMPH % 34.2 % (24.0-44.0); MEAN CORPUSCULAR HEMOGLOBIN 28.8 pg (27.0-33.0); MEAN CORPUSCULAR VOLUME 92.8 fl (80.0-96.0); MONO # 0.8 10^3/uL (0.0-0.8); MONO % 7.5 % (2.0-8.0); NEUTROPHILS # 5.6 10^3/uL (1.5-8.5); NEUTROPHILS % 55.1 % (36.0-66.0); PLATELET COUNT, AUTOMATED 373 10^3/uL (150-450); RED BLOOD COUNT 3.75 10^6/uL (4.00-5.40); WHITE BLOOD COUNT 10.2 10^3/uL (4.0-10.0)
[2020-05-17 07:01] LABS: BLOOD UREA NITROGEN 17 MG/DL (7-18); CALCIUM LEVEL 9.1 MG/DL (8.8-10.2); CARBON DIOXIDE LEVEL 31 MEQ/L (21-32); CHLORIDE LEVEL 107 MEQ/L (98-107); CREATININE FOR GFR 0.87 MG/DL (0.55-1.30); GLOMERULAR FILTRATION RATE > 60.0 (>32); GLUCOSE, FASTING 119 MG/DL (70-100); MAGNESIUM LEVEL 1.8 MG/DL (1.8-2.4); POTASSIUM SERUM 4.1 MEQ/L (3.5-5.1); SODIUM LEVEL 142 MEQ/L (136-145)
[2020-05-17] MEDS: guaiFENesin ER 600 MG TAB PO SCH ×2 (09:00→20:43)
[2020-05-17] MEDS: HumaLOG INSULIN (NovoLOG) PER UNIT SC SCH ×4 (10:28→20:27)
[2020-05-17] MEDS: LEVEMIR (INSULIN DETEMIR) 1 UNITS/0.01ML SC SCH ×2 (10:28→20:44)
[2020-05-17] MEDS: CLOPIDOGREL 75 MG TAB PO SCH (10:29)
[2020-05-17] MEDS: OMEPRAZOLE 20 MG CAP PO SCH (10:29)
[2020-05-17] MEDS: ENOXAPARIN 40MG/0.4ML SYRINGE (J1650 PER 10MG) SC SCH ×2 (10:29→20:44)
[2020-05-17] MEDS: METOPROLOL TART 12.5 MG PER 1/2 TAB PO SCH ×2 (10:30→20:43)
[2020-05-17] MEDS: DOCUSATE SODIUM 100MG CAPSULE PO SCH ×2 (10:30→20:43)
[2020-05-17] MEDS: predniSONE 5 MG TAB PO SCH (10:31)
[2020-05-17] MEDS: ATORVASTATIN 20 MG TAB PO SCH (10:31)
[2020-05-17] MEDS: amLODIPine 5 MG TAB PO SCH ×2 (10:31→20:43)
[2020-05-17] MEDS: FLUoxetine 20 MG CAP PO SCH (10:31)
[2020-05-18 06:00] VITALS: BP 127/67
[2020-05-18 06:29] LABS: BASO % 0.4 % (0.0-1.0); EOS # 0.2 10^3/uL (0.0-0.5); EOS % 1.9 % (0.0-3.0); HEMATOCRIT 33.6 % (36.0-47.0); HEMOGLOBIN 10.7 g/dl (12.0-15.5); LYMPH # 3.4 10^3/uL (1.5-5.0); LYMPH % 34.1 % (24.0-44.0); MEAN CORPUSCULAR HEMOGLOBIN 29.8 pg (27.0-33.0); MEAN CORPUSCULAR HGB CONC 31.8 g/dl (32.0-36.5); MEAN CORPUSCULAR VOLUME 93.6 fl (80.0-96.0); MONO # 0.8 10^3/uL (0.0-0.8); MONO % 8.1 % (2.0-8.0); NEUTROPHILS # 5.4 10^3/uL (1.5-8.5); NEUTROPHILS % 54.9 % (36.0-66.0); PLATELET COUNT, AUTOMATED 340 10^3/uL (150-450); RED BLOOD COUNT 3.59 10^6/uL (4.00-5.40); WHITE BLOOD COUNT 9.8 10^3/uL (4.0-10.0)
[2020-05-18 06:53] LABS: BLOOD UREA NITROGEN 17 MG/DL (7-18); CALCIUM LEVEL 8.4 MG/DL (8.8-10.2); CARBON DIOXIDE LEVEL 30 MEQ/L (21-32); CHLORIDE LEVEL 108 MEQ/L (98-107); CREATININE FOR GFR 0.89 MG/DL (0.55-1.30); GLOMERULAR FILTRATION RATE > 60.0 (>32); GLUCOSE, FASTING 107 MG/DL (70-100); SODIUM LEVEL 143 MEQ/L (136-145)
[2020-05-18] MEDS: DOCUSATE SODIUM 100MG CAPSULE PO SCH (08:28)
[2020-05-18] MEDS: ATORVASTATIN 20 MG TAB PO SCH (08:28)
[2020-05-18] MEDS: FLUoxetine 20 MG CAP PO SCH (08:28)
[2020-05-18] MEDS: predniSONE 5 MG TAB PO SCH (08:28)
[2020-05-18] MEDS: guaiFENesin ER 600 MG TAB PO SCH (08:28)
[2020-05-18 08:29] VITALS: BP 162/91
[2020-05-18] MEDS: METOPROLOL TART 12.5 MG PER 1/2 TAB PO SCH (08:29)
[2020-05-18] MEDS: amLODIPine 5 MG TAB PO SCH (08:29)
[2020-05-18] MEDS: OMEPRAZOLE 20 MG CAP PO SCH (08:29)
[2020-05-18] MEDS: CLOPIDOGREL 75 MG TAB PO SCH (08:29)
[2020-05-18] MEDS: LEVEMIR (INSULIN DETEMIR) 1 UNITS/0.01ML SC SCH (08:30)
[2020-05-18] MEDS: HumaLOG INSULIN (NovoLOG) PER UNIT SC SCH ×2 (08:30→12:07)
[2020-05-18] MEDS: ENOXAPARIN 40MG/0.4ML SYRINGE (J1650 PER 10MG) SC SCH (08:31)
[2020-05-18 09:00] VITALS: BP 162/91
[2020-05-18] MEDS ORDERED: METO1TAB87 PO (11:52)
[2020-05-18] MEDS ORDERED: PRED25TA PO (11:52)
[2020-05-18] MEDS ORDERED: LANTINJ4 SC ×2 (11:52→11:53)
[2020-05-18] MEDS ORDERED: BLOOKIT21 XX (11:53)
[2020-05-18] MEDS ORDERED: INSU1MIS20 SC (11:53)
[2020-05-18] MEDS ORDERED: LANC30MI XX (11:53)
[2020-05-18] MEDS ORDERED: ALCOPAD25 TOP (11:53)
[2020-05-18] MEDS ORDERED: GLUC1TES2 XX (11:53)
--- NOTE | 2020-05-18 12:03 | DS.PDOC ---
Discharge Summary General Date of Admission Apr 29, 2020 at 12:54 Date of Discharge 05/18/20 Discharge Summary PROCEDURES PERFORMED DURING STAY: [None]. ADMITTING DIAGNOSES: COVID19 pneumonia NESS Electrolyte Disturbances Weakness NIDDM2 HTN DLP Vascular dementia without behavioral changes Depression GERD DISCHARGE DIAGNOSES: COVID19 pneumonia NESS Electrolyte Disturbances Weakness NIDDM2 HTN DLP Vascular dementia without behavioral changes Depression GERD COMPLICATIONS/CHIEF COMPLAINT: Acute Kidney Injury. HISTORY OF PRESENT ILLNESS: Pt is an 80YO F with PMH of NIDDM, HTN, GERD, CAD (?) who presents with shortness of breath and cough with a recent history of COVID positive testing. She was in quarantine for 10 days per ER provider. Pt is unable to provide appropriate history. She states something about having "twp pees and that's it." She does report sore throat and cough and shortness of breath for the past couple days and denies N/V/D/C at this time. During interview, she proceeds to tap on her epigastric area and states that she has pain, but this complaint is inconsistent as later she denies having abdominal pain. When asked about pt's past medical/surgical histories as well as her PCP, she does not answer the question and instead states that the hospital doctors are her doctors and she doesn't know. Pt's mentation at baseline is unknown and her son did not answer my phone call. She is cooperative during entire exam, although does elicit some emotional lability. HOSPITAL COURSE: During the hospital stay the following issues addressed Patient was treated for COVID 19 pneumonia complicated by bacterial pneumonia. Patient received broad-spectrum antibiotics with inhalers and steroids with positive effect. Also patient developed acute kidney injury treated with fluid resuscitation with positive effect, NESS resolved. Patient received electrolytes replacements when necessary. Patient received treatment with physical therapy due to generalized weakness and deconditioning. Patient has been treated for diabetes with insulin sliding scale and detemir twice a day. We managed hypertension and blood pressure was under control. For depression patient received fluoxetine. DISCHARGE MEDICATIONS: Please see below. ALLERGIES: Please see below. PHYSICAL EXAMINATION ON DISCHARGE: VITAL SIGNS: Please see below. GENERAL APPEARANCE: NAD HEENT: no scleral icterus, no JVD, EOMI CARDIOVASCULAR: S1S2 LUNGS: CTA ABDOMEN: soft & not tender w palpitation MUSCULOSKELETAL: no cyanosis, no swelling INTEGUMENT: no generalized pallor NEUROLOGICAL: cranial nerve function from 2-12 intact intact, follows commands, speech not dysarthric LABORATORY DATA: Please see below. IMAGING: SINGLE PORTABLE AP VIEW OF THE CHEST WAS PERFORMED. FINDINGS: The right lung infiltrates have essentially resolved. Mild patchy infiltrate in the left retrocardiac region is unchanged. Once again there is mild cardiomegaly and calcification of the thoracic aorta. The mediastinal silhouette is unchanged. There are degenerative changes of the spine. IMPRESSION: Right lung infiltrates appear to have essentially resolved. Mild left retrocardiac infiltrate inferiorly appears unchanged. <Electronically signed by Pavel Velez > 05/03/20 0937 PROGNOSIS: Fair ACTIVITY: [As tolerated]. DIET: Diabetes diet DISCHARGE PLAN: SNF ITEMS TO FOLLOWUP ON ON OUTPATIENT: Follow-up with PCP in the outpatient settings in 3-5 days DISCHARGE CONDITION: [Stable]. TIME SPENT ON DISCHARGE: 40 minutes. Vital Signs/I&Os Vital Signs Date Time Temp Pulse Resp B/P (MAP) Pulse Ox O2 Delivery O2 Flow Rate FiO2 05/18/20 09:00 97.1 70 18 162/91 (114) 98 Room Air I&O- Last 24 Hours up to 6 AM 05/18/20 06:00 Intake Total 920 ml Output Total 140 ml Balance 780 ml Laboratory Data Labs 24H Laboratory Tests 2 05/17/20 16:27: Bedside Glucose (Misc Panel) 252H 05/17/20 20:22: Bedside Glucose (Misc Panel) 229H 05/18/20 05:23: Bedside Glucose (Misc Panel) 107 05/18/20 05:35: Immature Granulocyte % (Auto) 0.6, Neutrophils (%) (Auto) 54.9, Lymphocytes (%) (Auto) 34.1, Monocytes (%) (Auto) 8.1H, Eosinophils (%) (Auto) 1.9, Basophils (%) (Auto) 0.4, Neutrophils # (Auto) 5.4, Lymphocytes # (Auto) 3.4, Monocytes # (Auto) 0.8, Eosinophils # (Auto) 0.2, Basophils # (Auto) 0.0, Nucleated Red Blood Cells % (auto) 0.0, Anion Gap 5L, Glomerular Filtration Rate > 60.0, Calcium Level 8.4L, Magnesium Level 2.0 CBC/BMP Laboratory Tests 05/18/20 05:35 FSBS Laboratory Tests Test 05/17/20 16:27 05/17/20 20:22 05/18/20 05:23 Range/Units Bedside Glucose (Misc Panel) 252 229 107 83-110 MG/DL Discharge Medications Scheduled Amlodipine Besylate (Amlodipine Besylate) 5 Mg Tab, 5 MG PO BID, (Reported) Atorvastatin Calcium (Atorvastatin Calcium) 20 Mg Tab, 20 MG PO DAILY, (Repor carol) Blood Sugar Diagnostic (Advanced Glucose Test Strips) 1 Each Strip, 1 STRIP XX ASDIRECTED Clopidogrel Bisulfate (Clopidogrel) 75 Mg Tab, 75 MG PO DAILY, (Reported) Fluoxetine Hcl (Fluoxetine HCl) 20 Mg Cap, 20 MG PO DAILY, (Reported) Insulin Glargine,Hum.rec.anlog (Lantus Solostar) 100 Unit/1 Ml Insuln.pen, 10 UNITS SC QHS Losartan Potassium (Losartan Potassium) 100 Mg Tablet, 100 MG PO DAILY, (Reported) Metformin HCl (Metformin HCl) 500 Mg Tablet, 500 MG PO BID, (Reported) Metoprolol Tartrate (Metoprolol Tartrate) 25 Mg Tablet, 12.5 MG PO BID Omeprazole (Omeprazole) 40 Mg Cap, 40 MG PO DAILY, (Reported) Prednisone (Prednisone) 2.5 Mg Tablet, 2.5 MG PO DAILY Sitagliptin Phosphate (Januvia) 100 Mg Tab, 100 MG PO DAILY, (Reported) Allergies Coded Allergies: phenytoin (Verified Allergy, Severe, ANAPHYLAXIS, 04/29/20) lisinopril (Verified Adverse Reaction, Intermediate, COUGH, 04/29/20) pioglitazone (Verified Adverse Reaction, Mild, FEET SWELLING, 04/29/20) risedronate sodium (Verified Adverse Reaction, Mild, FALLS, 04/29/20) REGGIE NUNO DO May 18, 2020 12:03
== END 2020-05-18 14:37 | DRG 177 ==
LOC: M ED 08:28 → EDBD 08:28 → M ED INP 12:54 → M 4MAIN 14:25 → M MSPAV 05-11 15:44
PROVIDERS: ADMIT Internal Medicine; ATTEND Internal Medicine
DX: U07.1 COVID-19 (principal); J12.82 Pneumonia due to coronavirus disease 2019; J15.9 Unspecified bacterial pneumonia; N17.9 Acute kidney failure, unspecified; J98.11 Atelectasis; F01.50 Vascular dementia, unspecified severity, without behavioral disturbance, psychotic disturbance, mood disturbance, and anxiety; E11.9 Type 2 diabetes mellitus without complications; R53.1 Weakness; I10 Essential (primary) hypertension; K21.9 Gastro-esophageal reflux disease without esophagitis; Z79.899 Other long term (current) drug therapy; Z79.4 Long term (current) use of insulin; Z88.8 Allergy status to other drugs, medicaments and biological substances; Z86.73 Personal history of transient ischemic attack (TIA), and cerebral infarction without residual deficits; E78.5 Hyperlipidemia, unspecified; I95.9 Hypotension, unspecified; F32.9 Major depressive disorder, single episode, unspecified; E87.6 Hypokalemia; E83.42 Hypomagnesemia

== ENCOUNTER → 2020-07-18 | Outpatient (CLI) | payer MEDICARE ==
[~2020-07-18] MED LIST changes: +ALCOPAD25 TOP; +BLOOKIT21 XX; +GLUC1TES2 XX; +INSU1MIS20 SC; +LANC30MI XX; +LANTINJ4 SC; +LOSA100T50 PO; +METF-839 PO; +PRED25TA PO
[2020-07-18 10:09] LABS: BLOOD UREA NITROGEN 14 MG/DL (7-18); CALCIUM LEVEL 9.6 MG/DL (8.8-10.2); CARBON DIOXIDE LEVEL 29 MEQ/L (21-32); CHLORIDE LEVEL 103 MEQ/L (98-107); CHOLESTEROL LEVEL 136 MG/DL (<200); CHOLESTEROL RISK RATIO 3.022 (<5); CREATININE FOR GFR 0.85 MG/DL (0.55-1.30); GLOMERULAR FILTRATION RATE > 60.0 (>32); GLUCOSE, FASTING 112 MG/DL (70-100); HDL CHOLESTEROL 45 MG/DL (>40); LDL CHOLESTEROL 58 MG/DL (<100); NON-HDL-C 91 MG/DL; POTASSIUM SERUM 3.4 MEQ/L (3.5-5.1); SODIUM LEVEL 139 MEQ/L (136-145); TRIGLYCERIDES LEVEL 167 MG/DL (<150)
== END ==
LOC: M LAB 08:44
PROVIDERS: ATTEND Family Medicine
DX: E11.9 Type 2 diabetes mellitus without complications (principal)

== ENCOUNTER → 2020-11-16 | Outpatient (CLI) | payer MEDICARE ==
[~2020-11-16] MED LIST changes: +OMEP40CA4 PO; -OMEP40CA97 PO
[2020-11-16 17:48] LABS: HEMOGLOBIN A1c 6.8 %
== END ==
LOC: M LAB 08:37
PROVIDERS: ATTEND Student in an Organized Health Care Education/Training Program
DX: E11.9 Type 2 diabetes mellitus without complications (principal)

== ENCOUNTER → 2021-03-12 | Outpatient (CLI) | payer MEDICARE ==
[~2021-03-12] MED LIST changes: +LOSA100T45 PO; -LOSA100T50 PO; +LOSA50TA28 PO; -LOSA50TA88 PO
== END ==
LOC: M LABSMTC 09:38
PROVIDERS: ATTEND Pediatrics
DX: Z20.822 Contact with and (suspected) exposure to COVID-19 (principal)
CPT/HCPCS: C9803; U0003

== ENCOUNTER → 2021-03-18 | Outpatient (REF) | payer MEDICARE | LOC: SKLAB6 13:48 | PROVIDERS: ATTEND Internal Medicine | DX: Z11.2 Encounter for screening for other bacterial diseases (principal) ==

== ENCOUNTER → 2021-03-18 | Outpatient (CLI) | payer MEDICARE | LOC: M RAD 14:20 | PROVIDERS: ATTEND Internal Medicine | DX: Z11.1 Encounter for screening for respiratory tuberculosis (principal); I51.7 Cardiomegaly ==

== ENCOUNTER → 2021-03-18 | Outpatient (REF) | payer MEDICARE ==
[2021-03-18 09:21] LABS: HEMATOCRIT 39.2 % (36.0-47.0); HEMOGLOBIN 12.3 g/dl (12.0-15.5); MEAN CORPUSCULAR HEMOGLOBIN 28.9 pg (27.0-33.0); MEAN CORPUSCULAR HGB CONC 31.4 g/dl (32.0-36.5); PLATELET COUNT, AUTOMATED 343 10^3/uL (150-450); RED BLOOD COUNT 4.26 10^6/uL (4.00-5.40); WHITE BLOOD COUNT 9.2 10^3/uL (4.0-10.0)
[2021-03-18 09:43] LABS: ALBUMIN 3.7 GM/DL (3.2-5.2); BILIRUBIN,TOTAL 0.7 MG/DL (0.2-1.0); CALCIUM LEVEL 9.4 MG/DL (8.8-10.2); CHOLESTEROL RISK RATIO 2.588 (<5); CREATININE FOR GFR 1.04 MG/DL (0.55-1.30); GLOMERULAR FILTRATION RATE 54.1 (>32); POTASSIUM SERUM 3.9 MEQ/L (3.5-5.1); TOTAL PROTEIN 7.1 GM/DL (6.4-8.2)
[2021-03-18 09:45] LABS: HEMOGLOBIN A1c 6.5 %
[2021-03-18 12:34] LABS: MALB URINE SIEMENS 38.8 MG/L; MAU/CREAT RATIO 22.2 MCG/MG (0.0-30.0)
== END ==
LOC: SKLAB6 07:00
PROVIDERS: ATTEND Internal Medicine
DX: D64.9 Anemia, unspecified (principal); E11.9 Type 2 diabetes mellitus without complications; I12.9 Hypertensive chronic kidney disease with stage 1 through stage 4 chronic kidney disease, or unspecified chronic kidney disease; N18.9 Chronic kidney disease, unspecified

== ENCOUNTER → 2021-07-22 | Outpatient (REF) | payer MEDICARE | LOC: SKLAB5 12:39 | PROVIDERS: ATTEND Internal Medicine | DX: E11.9 Type 2 diabetes mellitus without complications (principal); Z53.9 Procedure and treatment not carried out, unspecified reason ==

== ENCOUNTER → 2021-07-27 | Outpatient (REF) | payer MEDICARE ==
[2021-07-27 09:20] LABS: HEMATOCRIT 40.3 % (36.0-47.0); HEMOGLOBIN 12.8 g/dl (12.0-15.5); MEAN CORPUSCULAR HEMOGLOBIN 29.8 pg (27.0-33.0); MEAN CORPUSCULAR HGB CONC 31.8 g/dl (32.0-36.5); MEAN CORPUSCULAR VOLUME 93.7 fl (80.0-96.0); PLATELET COUNT, AUTOMATED 381 10^3/uL (150-450); WHITE BLOOD COUNT 12.4 10^3/uL (4.0-10.0)
[2021-07-27 10:03] LABS: ALBUMIN 3.7 GM/DL (3.2-5.2); BILIRUBIN,TOTAL 0.6 MG/DL (0.2-1.0); CALCIUM LEVEL 9.2 MG/DL (8.8-10.2); CREATININE FOR GFR 1.1 MG/DL (0.55-1.30); GLOMERULAR FILTRATION RATE 50.6 (>32); POTASSIUM SERUM 3.8 MEQ/L (3.5-5.1); TOTAL PROTEIN 7.4 GM/DL (6.4-8.2)
== END ==
LOC: SKLAB5 08:19
PROVIDERS: ATTEND Internal Medicine
DX: R10.9 Unspecified abdominal pain (principal)

== ENCOUNTER → 2021-07-28 | Outpatient (CLI) | payer MEDICARE | LOC: M RAD 07:44 | PROVIDERS: ATTEND Internal Medicine | DX: R10.11 Right upper quadrant pain (principal); K80.20 Calculus of gallbladder without cholecystitis without obstruction; K76.89 Other specified diseases of liver ==

== ENCOUNTER → 2021-07-29 | Outpatient (REF) | payer MEDICARE ==
[2021-07-29 10:16] LABS: HEMATOCRIT 38.2 % (36.0-47.0); HEMOGLOBIN 12.1 g/dl (12.0-15.5); MEAN CORPUSCULAR HEMOGLOBIN 29.4 pg (27.0-33.0); MEAN CORPUSCULAR HGB CONC 31.7 g/dl (32.0-36.5); MEAN CORPUSCULAR VOLUME 92.7 fl (80.0-96.0); PLATELET COUNT, AUTOMATED 343 10^3/uL (150-450); RED BLOOD COUNT 4.12 10^6/uL (4.00-5.40); WHITE BLOOD COUNT 11.2 10^3/uL (4.0-10.0)
[2021-07-29 10:53] LABS: ALBUMIN 3.4 GM/DL (3.2-5.2); BILIRUBIN,TOTAL 1.1 MG/DL (0.2-1.0); CALCIUM LEVEL 9.4 MG/DL (8.8-10.2); CREATININE FOR GFR 1.23 MG/DL (0.55-1.30); GLOMERULAR FILTRATION RATE 44.5 (>32); POTASSIUM SERUM 3.3 MEQ/L (3.5-5.1)
== END ==
LOC: SKLAB5 07:32
PROVIDERS: ATTEND Internal Medicine
DX: D72.829 Elevated white blood cell count, unspecified (principal)

== ENCOUNTER → 2021-09-07 | Outpatient (REF) | payer MEDICARE | LOC: SKLAB4 10:03 | PROVIDERS: ATTEND Nurse Practitioner Family | DX: K44.9 Diaphragmatic hernia without obstruction or gangrene (principal); R05.9 Cough, unspecified ==

== ENCOUNTER → 2021-09-30 | Outpatient (CLI) | payer MEDICARE, MEDICAID | LOC: M RAD 08:35 | PROVIDERS: ATTEND Nurse Practitioner Family | DX: K44.9 Diaphragmatic hernia without obstruction or gangrene (principal); K80.20 Calculus of gallbladder without cholecystitis without obstruction; K57.90 Diverticulosis of intestine, part unspecified, without perforation or abscess without bleeding ==

== ENCOUNTER → 2021-10-27 | Outpatient (CLI) | payer MEDICAID, MEDICARE ==
[~2021-10-27] MED LIST changes: +GASTROGRAFIN SOLUTION 30ML (Q9963) As Ordered ONE
== END ==
LOC: M RAD 13:21
PROVIDERS: ATTEND Surgery
DX: R10.84 Generalized abdominal pain (principal)
CPT/HCPCS: 74176; Q9963

== ENCOUNTER → 2021-12-04 | Outpatient (REF) ==
[~2021-12-04] MED LIST changes: -GASTROGRAFIN SOLUTION 30ML (Q9963) As Ordered ONE
== END ==
LOC: SKLAB5 11:06
PROVIDERS: ATTEND Internal Medicine
DX: I51.7 Cardiomegaly (principal); R07.81 Pleurodynia; M54.9 Dorsalgia, unspecified

== ENCOUNTER → 2022-03-09 | Outpatient (REF) | payer MEDICARE ==
[2022-03-10 00:11] LABS: APPEARANCE, URINE MANUAL CLEAR (CLEAR); BILIRUBIN, URINE MANUAL NEGATIVE (NEGATIVE); BLOOD URINE MANUAL NEGATIVE (NEGATIVE); COLOR, URINE MANUAL YELLOW (YELLOW); GLUCOSE, URINE (UA) MANUAL NEGATIVE (NEGATIVE); KETONE, URINE MANUAL NEGATIVE (NEGATIVE); LEUKOCYTE ESTERASE, URINE MAN POSITIVE (NEGATIVE); NITRITE, URINE MANUAL NEGATIVE (NEGATIVE); PROTEIN, URINE MANUAL NEGATIVE (NEGATIVE); SPECIFIC GRAVITY,URINE MANUAL 1.015 (1.002-1.035); UROBILINOGEN, URINE MANUAL NORMAL (NORMAL)
[2022-03-10 00:26] LABS: BACTERIA, URINE SMALL AMOUNT; HYALINE CAST, URINE NONE SEEN /lpf (0-1); RBC, URINE NONE SEEN /hpf (0-3); SQUAMOUS EPITHELIAL CELL URINE SMALL AMOUNT /hpf (SMALL AMT)
== END ==
LOC: SKLAB5 23:11
PROVIDERS: ATTEND Internal Medicine
DX: R32 Unspecified urinary incontinence (principal)

== ENCOUNTER → 2022-03-25 | Outpatient (REF) | payer MEDICARE ==
[2022-03-25 07:49] LABS: CHOLESTEROL RISK RATIO 4.7 (<5); HDL CHOLESTEROL 30.4 MG/DL (>40)
== END ==
LOC: SKLAB5 08:34
PROVIDERS: ATTEND Internal Medicine
DX: E78.5 Hyperlipidemia, unspecified (principal)

== ENCOUNTER → 2022-03-29 | Outpatient (REF) | payer MEDICARE ==
[2022-03-29 15:24] LABS: HEMATOCRIT 38.7 % (36.0-47.0); HEMOGLOBIN 11.9 g/dl (12.0-15.5); MEAN CORPUSCULAR HEMOGLOBIN 28.9 pg (27.0-33.0); MEAN CORPUSCULAR HGB CONC 30.7 g/dl (32.0-36.5); MEAN CORPUSCULAR VOLUME 93.9 fl (80.0-96.0); PLATELET COUNT, AUTOMATED 393 10^3/uL (150-450); RED BLOOD COUNT 4.12 10^6/uL (4.00-5.40); WHITE BLOOD COUNT 13.3 10^3/uL (4.0-10.0)
[2022-03-29 15:39] LABS: ALBUMIN 3.4 G/DL (3.2-5.2); BILIRUBIN,TOTAL 0.7 MG/DL (0.3-1.2); CALCIUM LEVEL 8.5 MG/DL (8.3-10.6); CREATININE FOR GFR 1.23 MG/DL (0.55-1.30); GLOMERULAR FILTRATION RATE 53.9 (>32); POTASSIUM SERUM 3.7 MMOL/L (3.5-5.1); TOTAL PROTEIN 6.9 G/DL (5.7-8.2)
== END ==
LOC: SKLAB5 13:12
PROVIDERS: ATTEND Internal Medicine
DX: U07.1 COVID-19 (principal); Z79.899 Other long term (current) drug therapy

== ENCOUNTER → 2022-03-31 | Outpatient (REF) | payer MEDICARE ==
[2022-03-31 09:54] LABS: HEMATOCRIT 38.3 % (36.0-47.0); HEMOGLOBIN 12.1 g/dl (12.0-15.5); MEAN CORPUSCULAR HEMOGLOBIN 29.4 pg (27.0-33.0); MEAN CORPUSCULAR HGB CONC 31.6 g/dl (32.0-36.5); PLATELET COUNT, AUTOMATED 370 10^3/uL (150-450); RED BLOOD COUNT 4.12 10^6/uL (4.00-5.40); WHITE BLOOD COUNT 11.1 10^3/uL (4.0-10.0)
[2022-03-31 10:25] LABS: ALBUMIN 3.3 G/DL (3.2-5.2); ALKALINE PHOSPHATASE 55 U/L (46-116); ALT/SGPT 17 U/L (7.0-40); AST/SGOT 19 U/L (<34); BILIRUBIN,TOTAL 0.7 MG/DL (0.3-1.2); BLOOD UREA NITROGEN 13 MG/DL (9-23); CALCIUM LEVEL 8.9 MG/DL (8.3-10.6); CARBON DIOXIDE LEVEL 26 MMOL/L (20-31); CHLORIDE LEVEL 102 MMOL/L (98-107); CREATININE FOR GFR 0.91 MG/DL (0.55-1.30); GLOMERULAR FILTRATION RATE > 60.0 (>32); GLUCOSE, FASTING 194 MG/DL (74-106); POTASSIUM SERUM 3.9 MMOL/L (3.5-5.1); SODIUM LEVEL 138 MMOL/L (136-145)
== END ==
LOC: SKLAB5 13:42
PROVIDERS: ATTEND Internal Medicine
DX: U07.1 COVID-19 (principal); Z79.899 Other long term (current) drug therapy

== ENCOUNTER → 2022-04-04 | Outpatient (REF) | payer MEDICARE ==
[2022-04-04 11:58] LABS: HEMATOCRIT 40.8 % (36.0-47.0); HEMOGLOBIN 12.5 g/dl (12.0-15.5); MEAN CORPUSCULAR HEMOGLOBIN 28.5 pg (27.0-33.0); MEAN CORPUSCULAR HGB CONC 30.6 g/dl (32.0-36.5); MEAN CORPUSCULAR VOLUME 93.2 fl (80.0-96.0); PLATELET COUNT, AUTOMATED 498 10^3/uL (150-450); RED BLOOD COUNT 4.38 10^6/uL (4.00-5.40); WHITE BLOOD COUNT 12.2 10^3/uL (4.0-10.0)
[2022-04-04 12:30] LABS: ALBUMIN 3.7 G/DL (3.2-5.2); ALKALINE PHOSPHATASE 60 U/L (46-116); ALT/SGPT 13 U/L (7.0-40); AST/SGOT 16 U/L (<34); BILIRUBIN,TOTAL 0.7 MG/DL (0.3-1.2); BLOOD UREA NITROGEN 11 MG/DL (9-23); CALCIUM LEVEL 9.9 MG/DL (8.3-10.6); CARBON DIOXIDE LEVEL 28 MMOL/L (20-31); CHLORIDE LEVEL 103 MMOL/L (98-107); CREATININE FOR GFR 1.07 MG/DL (0.55-1.30); GLOMERULAR FILTRATION RATE > 60.0 (>32); GLUCOSE, FASTING 122 MG/DL (74-106); POTASSIUM SERUM 4.3 MMOL/L (3.5-5.1); SODIUM LEVEL 141 MMOL/L (136-145); TOTAL PROTEIN 7.4 G/DL (5.7-8.2)
== END ==
LOC: SKLAB5 11:02
PROVIDERS: ATTEND Internal Medicine
DX: U07.1 COVID-19 (principal); Z79.899 Other long term (current) drug therapy

== ENCOUNTER → 2022-04-07 | Outpatient (REF) | payer MEDICARE | LOC: SKLAB5 09:01 | PROVIDERS: ATTEND Internal Medicine | DX: U07.1 COVID-19 (principal); Z53.8 Procedure and treatment not carried out for other reasons ==

== ENCOUNTER → 2022-04-07 | Outpatient (REF) | payer MEDICARE ==
[2022-04-07 08:27] LABS: HEMATOCRIT 38.5 % (36.0-47.0); HEMOGLOBIN 11.9 g/dl (12.0-15.5); MEAN CORPUSCULAR HGB CONC 30.9 g/dl (32.0-36.5); MEAN CORPUSCULAR VOLUME 93.9 fl (80.0-96.0); PLATELET COUNT, AUTOMATED 506 10^3/uL (150-450); WHITE BLOOD COUNT 8.4 10^3/uL (4.0-10.0)
[2022-04-07 08:48] LABS: ALBUMIN 3.5 G/DL (3.2-5.2); ALKALINE PHOSPHATASE 56 U/L (46-116); ALT/SGPT 12 U/L (7.0-40); AST/SGOT 16 U/L (<34); BILIRUBIN,TOTAL 0.5 MG/DL (0.3-1.2); BLOOD UREA NITROGEN 11 MG/DL (9-23); CALCIUM LEVEL 9.1 MG/DL (8.3-10.6); CARBON DIOXIDE LEVEL 27 MMOL/L (20-31); CHLORIDE LEVEL 106 MMOL/L (98-107); CREATININE FOR GFR 0.89 MG/DL (0.55-1.30); GLOMERULAR FILTRATION RATE > 60.0 (>32); GLUCOSE, FASTING 93 MG/DL (74-106); POTASSIUM SERUM 3.9 MMOL/L (3.5-5.1); SODIUM LEVEL 142 MMOL/L (136-145); TOTAL PROTEIN 7.1 G/DL (5.7-8.2)
== END ==
LOC: SKLAB5 09:02
PROVIDERS: ATTEND Internal Medicine
DX: U07.1 COVID-19 (principal)

== ENCOUNTER → 2022-04-19 | Outpatient (REF) | payer MEDICARE | LOC: SKLAB5 13:26 | PROVIDERS: ATTEND Internal Medicine | DX: D64.9 Anemia, unspecified (principal); E05.80 Other thyrotoxicosis without thyrotoxic crisis or storm; Z53.8 Procedure and treatment not carried out for other reasons ==

== ENCOUNTER → 2022-04-22 | Outpatient (REF) | payer MEDICARE ==
[2022-04-22 08:30] LABS: HEMATOCRIT 39.6 % (36.0-47.0); HEMOGLOBIN 12.3 g/dl (12.0-15.5); MEAN CORPUSCULAR HGB CONC 31.1 g/dl (32.0-36.5); MEAN CORPUSCULAR VOLUME 93.4 fl (80.0-96.0); PLATELET COUNT, AUTOMATED 438 10^3/uL (150-450); RED BLOOD COUNT 4.24 10^6/uL (4.00-5.40); WHITE BLOOD COUNT 9.5 10^3/uL (4.0-10.0)
[2022-04-22 08:52] LABS: ALBUMIN 3.6 G/DL (3.2-5.2); ALKALINE PHOSPHATASE 60 U/L (46-116); ALT/SGPT 13 U/L (7.0-40); AST/SGOT 18 U/L (<34); BLOOD UREA NITROGEN 12 MG/DL (9-23); CALCIUM LEVEL 9.3 MG/DL (8.3-10.6); CARBON DIOXIDE LEVEL 29 MMOL/L (20-31); CHLORIDE LEVEL 104 MMOL/L (98-107); CREATININE FOR GFR 0.88 MG/DL (0.55-1.30); GLOMERULAR FILTRATION RATE > 60.0 (>32); GLUCOSE, FASTING 97 MG/DL (74-106); POTASSIUM SERUM 3.8 MMOL/L (3.5-5.1); SODIUM LEVEL 143 MMOL/L (136-145); TOTAL PROTEIN 7.1 G/DL (5.7-8.2)
[2022-04-22 09:02] LABS: HEMOGLOBIN A1c 6.6 % (4.0-6.0)
== END ==
LOC: SKLAB5 14:03
PROVIDERS: ATTEND Internal Medicine
DX: D64.9 Anemia, unspecified (principal); E11.9 Type 2 diabetes mellitus without complications

== ENCOUNTER → 2022-07-22 | Outpatient (REF) | payer MEDICARE ==
[~2022-07-22] MED LIST changes: -LOSA100T45 PO; +LOSA100T46 PO
[2022-07-22 11:32] LABS: CREATININE, URINE 195.3 MG/DL; MAU/CREAT RATIO 28.1 MCG/MG (0.0-30.0)
== END ==
LOC: SKLAB5 11:20
PROVIDERS: ATTEND Internal Medicine
DX: E11.9 Type 2 diabetes mellitus without complications (principal)

== ENCOUNTER → 2022-10-21 | Outpatient (REF) | payer MEDICARE ==
[2022-10-21 06:51] LABS: HEMATOCRIT 37.7 % (36.0-47.0); HEMOGLOBIN 11.9 g/dl (12.0-15.5); MEAN CORPUSCULAR HEMOGLOBIN 29.4 pg (27.0-33.0); MEAN CORPUSCULAR HGB CONC 31.6 g/dl (32.0-36.5); MEAN CORPUSCULAR VOLUME 93.1 fl (80.0-96.0); PLATELET COUNT, AUTOMATED 341 10^3/uL (150-450); RED BLOOD COUNT 4.05 10^6/uL (4.00-5.40); WHITE BLOOD COUNT 8.6 10^3/uL (4.0-10.0)
[2022-10-21 07:18] LABS: ALBUMIN 3.2 G/DL (3.2-5.2); ALKALINE PHOSPHATASE 66 U/L (46-116); ALT/SGPT 12 U/L (7.0-40); AST/SGOT < 8 U/L (<34); BILIRUBIN,TOTAL 0.6 MG/DL (0.3-1.2); BLOOD UREA NITROGEN 16 MG/DL (9-23); CALCIUM LEVEL 9.1 MG/DL (8.3-10.6); CARBON DIOXIDE LEVEL 31 MMOL/L (20-31); CHLORIDE LEVEL 106 MMOL/L (98-107); CREATININE FOR GFR 0.86 MG/DL (0.55-1.30); GLOMERULAR FILTRATION RATE > 60.0 (>32); GLUCOSE, FASTING 186 MG/DL (74-106); SODIUM LEVEL 141 MMOL/L (136-145); TOTAL PROTEIN 6.5 G/DL (5.7-8.2)
[2022-10-21 08:34] LABS: HEMOGLOBIN A1c 6.8 % (4.0-6.0)
== END ==
LOC: SKLAB5 07:00
PROVIDERS: ATTEND Internal Medicine
DX: D64.9 Anemia, unspecified (principal); E11.9 Type 2 diabetes mellitus without complications

== ENCOUNTER → 2023-03-22 | Outpatient (REF) | payer MEDICARE | LOC: SKLAB5 10:48 | PROVIDERS: ATTEND Nurse Practitioner Family | DX: R06.02 Shortness of breath (principal) ==

== ENCOUNTER → 2023-03-23 | Outpatient (REF) | payer MEDICARE | LOC: SKLAB5 13:14 | PROVIDERS: ATTEND Nurse Practitioner Family | DX: K44.9 Diaphragmatic hernia without obstruction or gangrene (principal); J98.11 Atelectasis; R06.2 Wheezing ==

== ENCOUNTER → 2023-03-24 | Outpatient (REF) | payer MEDICARE ==
[2023-03-24 09:53] LABS: CHOLESTEROL RISK RATIO 4.21 (<5); HDL CHOLESTEROL 39.1 MG/DL (>40); LDL CHOLESTEROL 92.5 MG/DL (<100); NON-HDL-C 125.9 MG/DL
== END ==
LOC: SKLAB5 08:41
PROVIDERS: ATTEND Internal Medicine
DX: E78.9 Disorder of lipoprotein metabolism, unspecified (principal)

== ENCOUNTER → 2023-04-21 | Outpatient (REF) | payer MEDICARE ==
[2023-04-21 11:25] LABS: HEMATOCRIT 41.7 % (36.0-47.0); HEMOGLOBIN 13.2 g/dl (12.0-15.5); MEAN CORPUSCULAR HEMOGLOBIN 28.9 pg (27.0-33.0); MEAN CORPUSCULAR HGB CONC 31.7 g/dl (32.0-36.5); MEAN CORPUSCULAR VOLUME 91.2 fl (80.0-96.0); PLATELET COUNT, AUTOMATED 350 10^3/uL (150-450); RED BLOOD COUNT 4.57 10^6/uL (4.00-5.40); WHITE BLOOD COUNT 10.5 10^3/uL (4.0-10.0)
[2023-04-21 11:54] LABS: ALBUMIN 3.5 G/DL (3.2-5.2); ALKALINE PHOSPHATASE 68 U/L (46-116); ALT/SGPT 18 U/L (7.0-40); AST/SGOT 11 U/L (<34); BILIRUBIN,TOTAL 0.6 MG/DL (0.3-1.2); BLOOD UREA NITROGEN 15 MG/DL (9-23); CALCIUM LEVEL 9.4 MG/DL (8.3-10.6); CARBON DIOXIDE LEVEL 28 MMOL/L (20-31); CHLORIDE LEVEL 103 MMOL/L (98-107); CREATININE FOR GFR 1.04 MG/DL (0.55-1.30); GLOMERULAR FILTRATION RATE > 60.0 (>32); GLUCOSE, FASTING 199 MG/DL (74-106); POTASSIUM SERUM 4.1 MMOL/L (3.5-5.1); SODIUM LEVEL 140 MMOL/L (136-145)
[2023-04-21 12:39] LABS: HEMOGLOBIN A1c 7.8 % (4.0-6.0)
== END ==
LOC: SKLAB5 11:08
PROVIDERS: ATTEND Internal Medicine
DX: D64.9 Anemia, unspecified (principal); E11.9 Type 2 diabetes mellitus without complications